=== PATIENT | male | born 1965 | race Caucasian/White ===

== ENCOUNTER 2021-01-06 20:06 | Emergency (ER) | payer OTHER, SELFPAY ==
[2021-01-06 20:07] VITALS: BP 139/87; PULSE 98; RESP 18; TEMP 37; O2SAT 95; BMI 41.8
--- NOTE | 2021-01-06 21:05 | CT_ITS ---
EXAMINATION : Head CT w/out contrast HISTORY : Trauma COMPARISON : None. TECHNIQUE : Multiple contiguous axial images were obtained from the skull base to the vertex without intravenous contrast. A radiation dose optimization technique was used for this scan. FINDINGS : The ventricles and sulci are normal in size. There is no evidence for acute intracranial hemorrhage, mass effect, or midline shift. There is no extra-axial fluid collection. There is normal gamboa-white differentiation, without CT evidence of acute ischemia or infarct. The skull base and calvarium are unremarkable. The orbits are unremarkable. The paranasal sinuses are clear. The mastoid air cells are well-aerated. Large midline occipital parietal scalp hematoma. CT/Brain/Head without Contrast IMPRESSION: Large midline occipital parietal scalp hematoma. No fracture or intracranial hemorrhage. Electronically Signed: Sukh Hernadez MD at 21:28 EDT Tel , Service support ,
--- NOTE | 2021-01-06 21:05 | EKG12_ITS ---
Test Reason : SYNCOPY Blood Pressure : / mmHG Vent. Rate : 099 BPM Atrial Rate : 099 BPM P-R Int : 142 ms QRS Dur : 106 ms QT Int : 360 ms P-R-T Axes : 046 070 036 degrees QTc Int : 462 ms Sinus rhythm with frequent Premature ventricular complexes Otherwise normal ECG Confirmed by JOE SARABIA, SHYANNE ([id number]), city editor TAHMINA SLATER ([id number]) on 01/11/2021 10:37:47 AM Referred By: ROMI Confirmed By:SHYANNE DIAZ MD
--- NOTE | 2021-01-06 21:09 | ED.RN ---
NO OLD EKGS IN MUSE
[2021-01-06 21:18] LABS: Absolute Lymphocyte Count 3.08 X10^3/uL (0.83-4.51); Absolute Neutrophil Count 5.9 X10^3/uL (2.0-7.7); Basophil# 0.04 X10^3/uL; Basophil% 0.4 % (0-1); Eosinophil# 0.15 X10^3/uL; Eosinophils% 1.5 % (0-5); Hematocrit 46.2 % (40-54); Hemoglobin 15.2 g/dL (13.0-16.5); Lymphocyte # 3.08 X10^3/ul (4.0); Lymphocyte % 30.6 % (19-41); Mean Corp Hgb Conc 32.9 g/dL (32-36); Mean Corpuscular Hgb 31.7 pg (27.0-32.0); Mean Corpuscular Volume 96.5 fL (80-94); Mean Platelet Vol. 10.1 fl (6.2-12.0); Monocyte# 0.87 X10^3/uL; Monocyte% 8.6 % (0-10); NRBC Flagged by Analyzer 0 % (0-5); Neutrophil # 5.85 X10^3/uL (2.7-7.7); Neutrophil % 58.2 % (47-70); Platelet Count 241 K/mm3 (150-450); RBC Distribution Width CV 12.1 % (11.6-14.6); RBC Distribution Width SD 43.8 fl (35.1-43.9); Red Blood Count 4.79 M/mm3 (4.6-6.2); White Blood Count 10.1 K/mm3 (4.4-11.0)
[2021-01-06 21:33] LABS: ALB/GLOB Ratio 1.1 RATIO (0.9-2.4); AST(SGOT) 28 U/L (15-37); Alanine Aminotransfer ALT/SGPT 79 U/L (16-61); Albumin, Serum 3.8 g/dL (3.2-5.0); Alkaline Phosphatase 89 U/L (45-117); Anion Gap 6 (5-15); BUN 14 mg/dL (7-18); BUN/Creat Ratio 14.9 RATIO (10-20); Calcium,Total 8.5 mg/dL (8.5-10.1); Chloride 104 mmol/L (98-107); Creatinine, Serum 0.94 mg/dL (0.70-1.30); EST Glomerular Filtration Rate 89 mL/min (>60); Est Glom Filt Rate - Afr Amer 108 mL/min (>60); Estimated Creatinine Clearance 92.76 ml/min; Globulin 3.6 g/dL (2.2-4.2); Glucose 77 mg/dL (74-106); Potassium 3.7 mmol/L (3.5-5.1); Protein, Total 7.4 g/dL (6.4-8.2); Sodium Level 137 mmol/L (136-145)
[2021-01-06 21:37] VITALS: BP 128/91; PULSE 98; RESP 20; O2SAT 93
[2021-01-06 22:23] VITALS: BP 124/87; PULSE 88; RESP 19; O2SAT 91
--- NOTE | 2021-01-06 23:24 | ED.DCSUM_ITS ---
- ER Visit Summary Date of Service: 01/06/21 Chief Complaint: Syncope History of Present Illness: The patient is a 55 M who presents after syncopal episode that occurred today. 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 Patient states he remembers coughing then remembers waking up on the floor. Patient thinks he fell backwards and hit his head. Patient states the pain is dull and is localized to the occipital area. Patient denies any bleeding. Patient also admits to drinking 7-8 beers tonight. Patient denies any chest pain or palpitations. Patient denies any shortness of breath. Patient denies any nausea or vomiting. Physical Examination: Vital signs are stable. Patient is afebrile. Patient is in no acute distress. Oral mucosa is pink and moist. Neck is supple. Trachea is midline. There is no JVD noted. Heart was regular rate and rhythm. Lungs are clear and equal bilaterally. Abdomen is soft. Bowel sounds are normal. There is no tenderness. There is no rebound or guarding noted. Skin is warm dry. Cranial nerves II through XII are intact. There are no focal motor or sensory deficits noted. Extremities are intact. There is no calf tenderness or edema. There is tenderness and edema over the occipital scalp. There is no laceration noted. There is a superficial abrasion. There is no bleeding. Test Results: T scan of the brain was obtained. There is a scalp hematoma. There is no intracranial hemorrhage noted. This was interpreted by the radiologist and reviewed by myself. EKG was obtained. On my interpretation, it showed a normal sinus rhythm with occasional PVC with a rate of 99. TX interval, QRS interval, and QTc intervals were all normal. [place] was normal. There are no acute ST or T wave changes. CBC and comprehensive metabolic profile within normal limits. Troponin was normal. Emergency Department Course and Treatment: Patient is resting comfortably on reevaluation. Patient was advised that this is most likely a syncopal episode from his coughing. Patient was instructed to follow-up with his primary care physician in 5 to 7 days. Patient understood and was agreeable with the plan. All questions were answered. Disposition: Discharge home Impression: Tussive syncope This note was generated with [employer] dictation software. It may contain incorrect words, spelling, and punctuation that were not noted in review of the chart prior to signing ED Disposition - Plan for ED Patient: Disposition: Home or Assisted Living Diagnosis: Tussive syncope Instructions: ED Fainting, Uncertain Cause Referrals: José Luis Cornelius MD [STAFF PHYSICIAN] - 5-7 Days
== END 2021-01-06 23:33 | disposition home or self-care (01) ==
PROVIDERS: Emergency Provider Emergency Medicine
DX: R05 Cough (principal); S00.03XA Contusion of scalp, initial encounter; W18.00XA Striking against unspecified object with subsequent fall, initial encounter; Y93.9 Activity, unspecified; Y92.9 Unspecified place or not applicable; Y99.9 Unspecified external cause status; I49.3 Ventricular premature depolarization; Z72.0 Tobacco use
CPT/HCPCS: 70450; 80053; 84484; 85025; 93005; 99285

== ENCOUNTER → 2025-02-16 | Outpatient (CLI) | payer OTHER, SELFPAY ==
[2025-02-16 18:05] LABS: Absolute Lymphocyte Count 2.38 X10^3/uL (0.83-4.51); Basophil# 0.05 X10^3/uL; Basophil% 0.5 % (0-1); Eosinophil# 0.09 X10^3/uL; Hematocrit 50.5 % (40-54); Hemoglobin 16.6 g/dL (13.0-16.5); Lymphocyte # 2.38 X10^3/ul (0.83-4.51); Lymphocyte % 25.6 % (19-41); Mean Corp Hgb Conc 32.9 g/dL (32-36); Mean Corpuscular Hgb 31.5 pg (27.0-32.0); Mean Corpuscular Volume 95.8 fL (80-94); Mean Platelet Vol. 10.6 fl (6.2-12.0); Monocyte# 0.74 X10^3/uL; NRBC Flagged by Analyzer 0 % (0-5); Neutrophil # 5.99 X10^3/uL (2.7-7.7); Neutrophil % 64.4 % (47-70); Platelet Count 205 K/mm3 (150-450); RBC Distribution Width CV 13.4 % (11.6-14.6); RBC Distribution Width SD 47.7 fl (35.1-43.9); Red Blood Count 5.27 M/mm3 (4.6-6.2); White Blood Count 9.3 K/mm3 (4.4-11.0)
[2025-02-16 18:12] LABS: Hemoglobin A1c 5.9 % (<=5.6)
[2025-02-16 18:22] LABS: ALB/GLOB Ratio 1.4 RATIO (0.9-2.4); AST(SGOT) 25 U/L (<=37); Alanine Aminotransfer ALT/SGPT 28 U/L (<=46); Albumin, Serum 4.2 g/dL (3.5-5.0); Alkaline Phosphatase 99 U/L (40-129); Anion Gap 11 (5-15); BUN 14 mg/dL (4-19); Calcium,Total 9.8 mg/dL (7.6-11.0); Carbon Dioxide 24.4 mmol/L (21.0-32.0); Chloride 105 mmol/L (98-108); Cholesterol 193 mg/dL (<=200); Creatinine, Serum 0.88 mg/dL (0.70-1.20); EST Glomerular Filtration Rate 100 (>60); Glucose 85 mg/dL (70-99); High Density Lipoprotein 32 mg/dL; Low Density Lipoprotein Calc. 135 mg/dL; Magnesium 2.2 mg/dL (1.5-2.2); Potassium 4.4 mmol/L (3.3-5.1); Pro- Brain NATRIURETIC PEPTIDE 769 pg/mL (<=900); Protein, Total 7.2 g/dL (5.9-8.4); Sodium Level 141 mmol/L (133-145); Total Bilirubin 0.68 mg/dL (0.00-1.30); Triglycerides 129 mg/dL; Very Low Density Lipoprotein 26 mg/dL (5-40); cholesterol:hdl ratio screen 5.99
== END | disposition home or self-care (01) ==
LOC: MTLAB 16:49
PROVIDERS: PCP Family Medicine; Referring Provider Family Medicine; Visit Provider Family Medicine
DX: I48.92 Unspecified atrial flutter (principal); I10 Essential (primary) hypertension; G62.9 Polyneuropathy, unspecified; Z12.5 Encounter for screening for malignant neoplasm of prostate
CPT/HCPCS: 36415; 80053; 80061; 83036; 83735; 83880; 84153; 84443; 85025; G0103

== ENCOUNTER → 2025-04-17 | Outpatient (CLI) | payer OTHER, SELFPAY ==
--- NOTE | 2025-04-17 09:52 | ECHOCS_ITS ---
Reason For Study Reason For Study: ATRIAL FLUTTER Procedure This was a 2D Doppler, Color Flow transthoracic echocardiogram. Contrast injection was performed. The study was technically difficult. Exam performed in department. Left Ventricle Mildly dilated left ventricle. Moderate concentric left ventricular hypertrophy. The left ventricular ejection fraction is 35 %. Stage 2 diastolic dysfunction. Right Ventricle Normal RV size. Normal systolic function. Atria The left atrium is moderately enlarged. The right atrium is mildly enlarged. Mitral Valve Normal mitral valve. Tricuspid Valve Normal tricuspid valve. Aortic Valve The aortic valve is not well visualized. Pulmonic Valve Normal pulmonic valve. Great Vessels Normal aortic root. The pulmonary artery is normal size. Inferior vena cava collapse with respiration. Pericardium/Pleural No pericardial effusion. Medication Diluted definity 2ml given slow IV push to enhance endocardial definition. MMode/2D Measurements & Calculations LVIDd: 5.8 cm IVSd: 1.5 cm Ao root diam: 3.6 cm LVIDs: 4.7 cm LVPWd: 1.4 cm RVDd: 3.7 cm FS: 18.9 % LAV(MOD-bp): 115.9 ml LVAd ap4: 39.8 cm2 LVAd ap2: 37.8 cm2 LAV(MOD-bp) Indexed: 46.3 ml/m2 LVLd ap4: 9.6 cm LVLd ap2: 9.5 cm LAV(MOD-sp2): 101.3 ml EDV(MOD-sp4): 136.1 ml EDV(MOD-sp2): 124.7 ml LAV(MOD-sp4): 117.9 ml EDV(sp4-el): 140.5 ml EDV(sp2-el): 127.8 ml LVAs ap4: 31.2 cm2 LVAs ap2: 28.5 cm2 LVLs ap4: 8.8 cm LVLs ap2: 8.1 cm ESV(MOD-sp4): 90.4 ml ESV(MOD-sp2): 83.7 ml ESV(sp4-el): 93.8 ml ESV(sp2-el): 85.0 ml EF(MOD-sp4): 33.6 % EF(MOD-sp2): 32.9 % EF(sp4-el): 33.2 % SV(MOD-sp4): 45.8 ml SV(MOD-sp2): 41.1 ml SV(sp4-el): 46.7 ml SI(MOD-sp4): 18.3 ml/m2 SI(MOD-sp2): 16.4 ml/m2 LA A4 area: 31.2 cm2 LA dimension(2D): 5.7 cm RA A4 area: 23.2 cm2 TAPSE: 1.5 cm Time Measurements MV dec time: 0.13 sec Doppler Measurements & Calculations MV E max chente: 82.8 cm/sec MV V2 max: 116.5 cm/sec MV P1/2t max chente: 117.8 cm/sec MV A max chente: 43.2 cm/sec MV max P.4 mmHg MV P1/2t: 50.2 msec MV E/A: 1.9 MV V2 mean: 58.0 cm/sec MV dec slope: 687.5 cm/sec2 MV mean P.7 mmHg MVA(P1/2t): 4.4 cm2 MV V2 VTI: 19.5 cm Ao V2 max: 142.3 cm/sec LV V1 max: 78.0 cm/sec MR max chente: 398.4 cm/sec Ao max P.1 mmHg LV V1 max P.4 mmHg MR max P.5 mmHg Ao V2 mean: 106.0 cm/sec LV V1 mean P.3 mmHg MR mean chetne: 295.9 cm/sec Ao mean P.8 mmHg LV V1 mean: 54.3 cm/sec MR mean P.0 mmHg Ao V2 VTI: 24.4 cm LV V1 VTI: 13.7 cm MR VTI: 80.8 cm AV (velocity ratio): 0.56 PA V2 max: 63.8 cm/sec PA V2 mean: 41.1 cm/sec PA V2 VTI: 10.0 cm ECHO/Echo Complete W/ Contrast Interpretation Summary Mildly dilated left ventricle. Moderate concentric left ventricular hypertrophy. The left ventricular ejection fraction is 35 %. Stage 2 diastolic dysfunction. Ordering Physician: Jakob Morrissey Referring Physician: Jakob Morrissey Performed By: Ramona Wise, SILVIANO, RVT
--- OUTSIDE RECORDS SUMMARY | 2025-04-17 09:56 | XMS RPT_ITS | CCD ---
Author Organization [facility] Care Team Providers Care Housekeeper Home Name Role Phone Dr. Hernandez Dupree DO Primary Care Provider [phone] Dr. Hernandez Dupree DO Attending Provider Dr. Hernandez Dupree DO Referring Provider Yuni SARABIA, Dr. Robert Attending Provider [phone] Hernandez Dupree Attending Unavailable Hernandez Dupree Referring Unavailable Hernandez Dupree Primary Care Unavailable Jakob Morrissey Attending Unavailable Jakob Morrissey Referring Unavailable Hernandez Dupree Primary Care Unavailable Jakob Morrissey Attending Unavailable Jakob Morrissey Referring Unavailable Hernanedz Dupree Primary Care Unavailable Hernandez Dupree Referring Unavailable Jakob Morrissey Attending Unavailable Hernandez Dupree Primary Care Unavailable Medications Current Medications Medication Drug Class(es) Dates Sig (Normalized) Sig (Original) ascorbic acid 1000 mg oral tablet (1 source) Vitamin C Start: 03-22-2025 take 1 tablet by mouth once daily Ascorbic Acid (Vitamin C) 1,000 mg tablet Active 1000 mg PO daily March 22, 2025 12:00am cholecalciferol 0.05 mg oral capsule (1 source) Vitamin D Start: 03-22-2025 take 1 capsule by mouth once daily Cholecalciferol (Vitamin D3) 50 mcg (2,000 unit) capsule Active 50 ug PO daily March 22, 2025 12:00am furosemide 40 mg oral tablet (2 sources) Loop Diuretic Start: 03-22-2025 End: 03-22-2025 take 2 tablets by mouth once daily in the morning Furosemide (Lasix) 40 mg tablet Active 80 mg PO EVERY MORNING March 22, 2025 10:12am Dgekifvkujf-C6-Gbckie karla Serr (Glucosamine Daily Complex) 1,500-400-100 mg-unit-mg tablet (1 source) Start: 03-22-2025 take 1 tablet by mouth once daily at mealtime Hcypulipebe-X7-Defro llia Serr (Glucosamine Daily Complex) 1,500-400-100 mg-unit-mg tablet Active 3 {tbl} PO daily March 22, 2025 12:00am give after food/meal 24 hr metoprolol succinate 50 mg extended release oral tablet (2 sources) beta-Adrenergic Niko Start: 04-07-2025 take 1 tablet by mouth every twenty-four hours at bedtime Metoprolol Succinate 50 mg tablet extended release 24 hr Active 50 mg PO AT BEDTIME 60 3 April 07, 2025 12:00am Start: 03-22-2025 take 1 tablet by liliana th once daily Metoprolol Succinate 100 mg tablet extended release 24 hr Active 100 mg PO daily March 22, 2025 12:00am Multivitamin tablet (1 source) Start: 03-22-2025 Multivitamin t ablet Active 1 {tbl} PO daily March 22, 2025 12:00am rivaroxaban 20 mg oral tablet (1 source) Factor Xa Inhibitor Start: 03-22-2025 take 1 tablet by mouth once daily at dinner Rivaroxaban (Xarelto) 20 mg tablet Active 20 mg PO daily March 22, 2025 12:00am must administer with evening meal Tirzepatide (Weight Loss) (1 source) Start: 03-22-2025 Tirzepatide (W eight Loss) (Zepbound) 2.5 mg/0.5 mL pen injector Active 2.5 mg SC EVERY WEEK March 22, 2025 12:00am for 4 weeks tumeric 500mg (1 source) Start: 03-22-2025 tumeric 500mg Active PO March 22, 2025 12:00am Completed/Discontinued Medications Medication Drug Class(es) Dates Sig (Normalized) Sig (Original) Testosterone Health (1 source) Start: 03-22-2025 End: 04-07-2025 Testosterone Health Discontinued PO DAILY March 22, 2025 12:00am April 07, 2025 1:13pm Problems Problem Classification Problem Date Documented Date Episodic/Chronic Cardiac dysrhythmias (6 sources) Atrial fibrillation; Translations: [Unspecified atrial fibrillation] Onset: 04-07-2025 03-22-2025 Chronic Chronic obstructive pulmonary disease and bronchiectasis (1 source) Chronic obstructive lung disease; Translations: [Chronic obstructive pulmonary disease, unspecified] 03-22-2025 Chronic Essential hypertension (2 sources) Essential hypertension; Translations: [Essential (primary) hypertension] Onset: 04-07-2025 03-22-2025 Chronic Other diseases of veins and lymphatics (1 source) Vascular insufficiency; Translations: [Venous insufficiency (chronic) (peripheral)] 03-22-2025 Episodic Other nutritional; endocrine; and metabolic disorders (1 source) Obesity; Translations: [Obesity, unspecified] 03-22-2025 Chronic Syncope (3 sources) Syncope; Translations: [Syncope and collapse] Onset: 04-07-2025 03-22-2025 Episodic Varicose veins of lower extremity (1 source) Varicose veins of lower extremity; Translations: [Varicose veins of bilateral lower extremities with other complications] 03-22-2025 Episodic Results Test Name Value Interpretation Reference Range Facility Cardiology Visit Reporton Cardiology Visit Report [facility] [address] [place] [address] OFFICE VISIT Date of Service: 04/07/25 MR#: [id number] Acct: [id number] Name: JEMAL HERNANDEZ Jr. Rep #: [id number] : 1965 Provider: Dr. Jakob Morrissey MD Age/Sex: 59/M Location: [facility] [place] Status: Signed HPI HPI History of Present Illness Details: Pleasant 59-year-old man with no previous cardiac history who presents for an initial evaluation. He was seen in his primary physician's office and was noted to have swelling in his lower extremities after he had been noted on an EKG to be tachycardic with atrial flutter in January with a rate of 144 bpm. He was put on metoprolol and the dose increased and then also Xarelto. He apparently has a chads Vascor of 1. He was also recently started on tirzepatide for weight loss. He denies any shortness of breath no paroxysmal nocturnal dyspnea no pedal edema no neck arm or jaw discomfort suggest angina. He has been compliant with his medications except for 1 dose. His physical exam today is unremarkable his electrocardiogram demonstrates atrial flutter with a variable block and a heart rate of 123 bpm. 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 Accompanied by: Significant Other Is patient in pain?: No Allergies No Known Allergies Allergy (Verified 04/07/25 13:13) Medications ???Medication ???Instructions ???Recorded ???Confirmed ???Type ascorbic acid (vitamin C) 1,000 mg 1,000 mg PO QDAY 03/22/25 History tablet cholecalciferol (vitamin D3) 50 50 mcg PO QDAY 03/22/25 04/07/25 H istory mcg (2,000 unit) capsule furosemide 40 mg tablet (Lasix) 80 mg PO QAM 03/22/25 04/07/25 His tory glucosamine BRb-G7-Lhlnezasy 3 tab PO QDAY 03/22/25 04/07/25 Hi story curtis 1,500 mg-400 unit-100 mg tablet (Glucosamine Daily Complex) metoprolol succinate 100 mg 100 mg PO QDAY 03/22/25 04/07/25 H istory tablet,extended release 24 hr multivitamin 1 tab PO QDAY 03/22/25 04/07/25 Hi story rivaroxaban 20 mg tablet (Xarelto) 20 mg PO QDAY 03/22/25 04/07/25 History tirzepatide (weight loss) 2.5 2.5 mg subcut QWEEK 03/22/2504/07 History mg/0.5 mL subcutaneous pen injector (Zepbound) tumeric 500mg PO 03/22/25 History metoprolol succinate 50 mg 50 mg PO QHS #60 tabs 04/07/2506/24 Rx tablet,extended release 24 hr Have you fallen in the past year?: No PFSH Medical History Atrial fibrillation Atrial flutter COPD (chronic obstructive pulmonary disease) Essential (primary) hypertension Obesity Syncope Varicose veins of both lower extremities with complications Venous insufficiency Surgical History Hx of appendectomy Family History Other Cancer Heart disease Hypertension Myocardial infarction Social History Smoking Status: Former smoker alcohol intake: current ROS Const Const: Negative for fatigue, weakness, headache(s), daytime sleepiness or difficulty sleeping ENT ENT: Negative for headache(s), dizziness or Nosebleed/epistaxis Cardio Chest Pain: No Palpitations: No Edema: None Resp Respiratory: Positive for SOB with activity; Negative for SOB at rest, SOB orthopnea SOB lying down or Cough GI GI: Negative nausea, vomiting or heartburn Neuro Neuro: Negative for dizziness, lightheadedness, near syncope, headache(s) or weakness Endo Endo: Negative for fatigue Supplemental Info Supplemental Information Labs: HDL Cholesterol 32 mg/dL (40-) L Cholesterol 193 mg/dL (<=200) Triglycerides 129 mg/dL (-199) Diagnostics: Electrocardiogram Pulmonary: No Data to Display Past Visits: Cardiology Visit 04/07/25 Assessment and Plan Assessment and Plan (1) Atrial flutter: Status: Acute Plan: He does have atrial flutter with a variable block. My recommendation at this time will be to increase his beta-niko to metoprolol 100 mg in the morning and 50 mg in the evening of the long- acting, to continue the Xarelto and for us to consider an interval DC cardioversion. An echocardiogram should be performed in the interim to assess his ventricular function and depending on the findings further recommendations will be made. It appears he does have a snoring history and we may want to consider sleep apnea evaluation (more content not included)... Normal [facility] Absolute lymphocyte countOrd ered By: Hernandez Dupree on 02-16-2025 Lymphocytes Auto (Unsp spec) [#/Vol] 2.38 10*3/uL 0.83-4.51 [facility] Absolute neutrophil countOrd ered By: Hernandez Dupree on 02-16-2025 Neutrophils (Bld) [#/Vol] 6.0 10*3/uL 2.0-7.7 [facility] Anion gap in Serum or Plasma Ordered By: Hernandez Dupree on 02-16-2025 Anion gap [Moles/Vol] 11 mmol/L 02-11 [facility] Automated lymphocyte count a s percentage of total leukocytesOrdered By: Hernandez Dupree on 02-16-2025 Lymphocytes/100 WBC Auto (Unsp spec) 25.6 % [facility] BUN/creatinine ratioOrdered By: Hernandez Dupree on 02-16-2025 Urea nitrogen/Creatinine [Mass ratio] 16.0 mg/mg 07-19 [facility] Basophil percentageOrdered B y: Hernandez Dupree on 02-16-2025 Basophils/100 WBC (Bld) 0.5 % 0-1 [facility] Bilirubin, totalOrdered By: Hernandez Dupree on 02-16-2025 Bilirubin [Mass/Vol] 0.68 mg/dL 0.00-1.30 [facility] CBC W/Diff, Automatedon 01-29 Absolute Lymph 2.38 X10 3/uL Normal 0.83-4.51 [facility] Comment on above: Performed By: #### L 501.5200, L501.9910, L100.0100, L503.7505, L500.4100, L500.4050, L501.9985, L501.9520 #### [facility] [address] [place], [address] Absolute Neut 6.0 X10 3/uL Normal 2.0-7.7 [facility] Comment on above: Performed By: #### L 501.5200, L501.9910, L100.0100, L503.7505, L500.4100, L500.4050, L501.9985, L501.9520 #### [facility] [address] [place], [address] Basophils/100 WBC (Bld) 0.5 % Normal 0-1 [facility] Comment on above: Performed By: #### L 501.5200, L501.9910, L100.0100, L503.7505, L500.4100, L500.4050, L501.9985, L501.9520 #### [facility] [address] [place], [address] Eosinophils/100 WBC (Bld) 1.0 % Normal 0-5 [facility] Comment on above: Performed By: #### L 501.5200, L501.9910, L100.0100, L503.7505, L500.4100, L500.4050, L501.9985, L501.9520 #### [facility] [address] [place], [address] Erythrocyte distribution width (RBC) [Ratio] 13.4 % Normal 11.6-14.6 [facility] Comment on above: Performed By: #### L 501.5200, L501.9910, L100.0100, L503.7505, L500.4100, L500.4050, L501.9985, L501.9520 #### [facility] [address] [place], [address] Hematocrit (Bld) [Volume fraction] 50.5 % Normal 40-54 [facility] Comment on above: Performed By: #### L 501.5200, L501.9910, L100.0100, L503.7505, L500.4100, L500.4050, L501.9985, L501.9520 #### [facility] [address] [place], [address] Hemoglobin (Bld) [Mass/Vol] 16.6 g/dL High 13.0-16.5 [facility] Comment on above: Performed By: #### L 501.5200, L501.9910, L100.0100, L503.7505, L500.4100, L500.4050, L501.9985, L501.9520 #### [facility] [address] [place], [address] IG% 0.500 Normal 0.0-0.9 [facility] Comment on above: Result Comment: IG% - Immature Granulocytes (promyelocytes, myelocytes and metamyelocytes) > 1% indicates that a LEFT SHIFT is Present. Performed By: #### L 501.5200, L501.9910, L100.0100, L503.7505, L500.4100, L500.4050, L501.9985, L501.9520 #### [facility] [address] [place], [address] Lymphocytes/100 WBC (Bld) 25.6 % Normal 19-41 [facility] Comment on above: Performed By: #### L 501.5200, L501.9910, L100.0100, L503.7505, L500.4100, L500.4050, L501.9985, L501.9520 #### [facility] [address] [place], [address] MCH (RBC) [Entitic mass] 31.5 pg Normal 27.0-32.0 [facility] Comment on above: Performed By: #### L 501.5200, L501.9910, L100.0100, L503.7505, L500.4100, L500.4050, L501.9985, L501.9520 #### [facility] [address] [place], [address] MCHC (RBC) [Mass/Vol] 32.9 g/dL Normal 32-36 [facility] Comment on above: Performed By: #### L 501.5200, L501.9910, L100.0100, L503.7505, L500.4100, L500.4050, L501.9985, L501.9520 #### [facility] [address] [place], [address] MCV (RBC) [Entitic vol] 95.8 fL High 80-94 [facility] Comment on above: Performed By: #### L 501.5200, L501.9910, L100.0100, L503.7505, L500.4100, L500.4050, L501.9985, L501.9520 #### [facility] [address] [place], [address] Monocytes/100 WBC (Bld) 8.0 % Normal 0-10 [facility] Comment on above: Performed By: #### L 501.5200, L501.9910, L100.0100, L503.7505, L500.4100, L500.4050, L501.9985, L501.9520 #### [facility] [address] [place], [address] Neutrophils/100 WBC (Bld) 64.4 % Normal 47-70 [facility] Comment on above: Performed By: #### L 501.5200, L501.9910, L100.0100, L503.7505, L500.4100, L500.4050, L501.9985, L501.9520 #### [facility] [address] [place], [address] Nucleated RBC (Bld) [#/Vol] 0 10*3/uL Normal 0-5 [facility] Comment on above: Performed By: #### L 501.5200, L501.9910, L100.0100, L503.7505, L500.4100, L500.4050, L501.9985, L501.9520 #### [facility] [address] [place], [address] Platelet mean volume (Bld) [Entitic vol] 10.6 fL Normal 6.2-12.0 [facility] Comment on above: Performed By: #### L 501.5200, L501.9910, L100.0100, L503.7505, L500.4100, L500.4050, L501.9985, L501.9520 #### [facility] [address] [place], [address] Platelets (Bld) [#/Vol] 205 10*3/uL Normal 150-450 [facility] Comment on above: Performed By: #### L 501.5200, L501.9910, L100.0100, L503.7505, L500.4100, L500.4050, L501.9985, L501.9520 #### [facility] [address] [place], [address] RBC (Bld) [#/Vol] 5.27 10*6/uL Normal 4.6-6.2 [facility] Comment on above: Performed By: #### L 501.5200, L501.9910, L100.0100, L503.7505, L500.4100, L500.4050, L501.9985, L501.9520 #### [facility] [address] [place], [address] RDW SD 47.7 fl High 35.1-43.9 [facility] Comment on above: Performed By: #### L 501.5200, L501.9910, L100.0100, L503.7505, L500.4100, L500.4050, L501.9985, L501.9520 #### [facility] [address] [place], [address] WBC (Bld) [#/Vol] 9.3 10*3/uL Normal 4.4-11.0 [facility] Comment on above: Performed By: #### L 501.5200, L501.9910, L100.0100, L503.7505, L500.4100, L500.4050, L501.9985, L501.9520 #### [facility] [address] [place], [address] Calculated very low density lipoprotein (VLDL) cholesterol measurementOrdered By: Hernandez Dupree on 02-16-2025 Calculated very low density lipoprotein (VLDL) cholesterol measurement 26 mg/dL 5-40 [facility] Carbon dioxide, total [Moles /volume] in Central venous bloodOrdered By: Hernandez Dupree on 02-16-2025 CO2 [Moles/Vol] 24.4 mmol/L 21.0-32.0 [facility] Chloride assayOrdered By: Cassius Dupree on 02-16-2025 Chloride [Moles/Vol] 105 mmol/L 98-108 [facility] Comprehensive Metabolic Prof ilon 02-16-2025 Albumin [Mass/Vol] 4.2 g/dL Normal 3.5-5.0 [facility] Comment on above: Performed By: #### L 501.5200, L501.9910, L100.0100, L503.7505, L500.4100, L500.4050, L501.9985, L501.9520 #### [facility] [address] [place], [address] Albumin/Globulin [Mass ratio] 1.4 {ratio} Normal 0.9-2.4 [facility] Comment on above: Performed By: #### L 501.5200, L501.9910, L100.0100, L503.7505, L500.4100, L500.4050, L501.9985, L501.9520 #### [facility] [address] [place], [address] ALK PHOS 99 U/L Normal 40-129 [facility] Comment on above: Performed By: #### L 501.5200, L501.9910, L100.0100, L503.7505, L500.4100, L500.4050, L501.9985, L501.9520 #### [facility] [address] [place], [address] ALT [Catalytic activity/Vol] 28 U/L Normal <=46 [facility] Comment on above: Performed By: #### L 501.5200, L501.9910, L100.0100, L503.7505, L500.4100, L500.4050, L501.9985, L501.9520 #### [facility] [address] [place], [address] AST [Catalytic activity/Vol] 25 U/L Normal <=37 [facility] Comment on above: Performed By: #### L 501.5200, L501.9910, L100.0100, L503.7505, L500.4100, L500.4050, L501.9985, L501.9520 #### [facility] [address] [place], [address] Bilirubin [Mass/Vol] 0.68 mg/dL Normal 0.00-1.30 [facility] Comment on above: Performed By: #### L 501.5200, L501.9910, L100.0100, L503.7505, L500.4100, L500.4050, L501.9985, L501.9520 #### [facility] [address] [place], [place], [id number] (669) BUN/CRE 16.0 RATIO Normal 10-20 [facility] Comment on above: Performed By: #### L 501.5200, L501.9910, L100.0100, L503.7505, L500.4100, L500.4050, L501.9985, L501.9520 #### [facility] [address] [place], [address] Calcium [Mass/Vol] 9.8 mg/dL Normal 7.6-11.0 [facility] Comment on above: Performed By: #### L 501.5200, L501.9910, L100.0100, L503.7505, L500.4100, L500.4050, L501.9985, L501.9520 #### [facility] [address] [place], [address] Chloride [Moles/Vol] 105 mmol/L Normal 98-108 [facility] Comment on above: Performed By: #### L 501.5200, L501.9910, L100.0100, L503.7505, L500.4100, L500.4050, L501.9985, L501.9520 #### [facility] [address] [place], [address] CO2 [Moles/Vol] 24.4 mmol/L Normal 21.0-32.0 [facility] Comment on above: Performed By: #### L 501.5200, L501.9910, L100.0100, L503.7505, L500.4100, L500.4050, L501.9985, L501.9520 #### [facility] [address] [place], [address] Creatinine [Mass/Vol] 0.88 mg/dL Normal 0.70-1.20 [facility] Comment on above: Performed By: #### L 501.5200, L501.9910, L100.0100, L503.7505, L500.4100, L500.4050, L501.9985, L501.9520 #### [facility] [address] [place], [place], [id number] (481) GAP 11 Normal 5-15 [facility] Comment on above: Performed By: #### L 501.5200, L501.9910, L100.0100, L503.7505, L500.4100, L500.4050, L501.9985, L501.9520 #### [facility] [address] [place], [place], [id number] (441 GFR/1.73 sq M.predicted among non-blacks MDRD (S/P/Bld) [Vol rate/Area] 100 mL/min/{1.73_m2} Normal >60 [facility] Comment on above: Result Comment: mL/m in/1.73m2 CKD-EPI Creatinine Equation (2020) Performed By: #### L 501.5200, L501.9910, L100.0100, L503.7505, L500.4100, L500.4050, L501.9985, L501.9520 #### [facility] [address] [place], [address] Globulin (S) [Mass/Vol] 3.0 g/dL Normal 2.2-4.2 [facility] Comment on above: Performed By: #### L 501.5200, L501.9910, L100.0100, L503.7505, L500.4100, L500.4050, L501.9985, L501.9520 #### [facility] [address] [place], [address] Glucose [Mass/Vol] 85 mg/dL Normal 70-99 [facility] Comment on above: Performed By: #### L 501.5200, L501.9910, L100.0100, L503.7505, L500.4100, L500.4050, L501.9985, L501.9520 #### [facility] [address] [place], [address] Potassium [Moles/Vol] 4.4 mmol/L Normal 3.3-5.1 [facility] Comment on above: Performed By: #### L 501.5200, L501.9910, L100.0100, L503.7505, L500.4100, L500.4050, L501.9985, L501.9520 #### [facility] [address] [place], [address] Sodium [Moles/Vol] 141 mmol/L Normal 133-145 [facility] Comment on above: Performed By: #### L 501.5200, L501.9910, L100.0100, L503.7505, L500.4100, L500.4050, L501.9985, L501.9520 #### [facility] [address] [place], [place], [id number] T PROT 7.2 g/dL Normal 5.9-8.4 [facility] Comment on above: Performed By: #### L 501.5200, L501.9910, L100.0100, L503.7505, L500.4100, L500.4050, L501.9985, L501.9520 #### [facility] [address] [place], [place], [id number] Urea nitrogen [Mass/Vol] 14 mg/dL Normal 4-19 [facility] Comment on above: Performed By: #### L 501.5200, L501.9910, L100.0100, L503.7505, L500.4100, L500.4050, L501.9985, L501.9520 #### [facility] [address] [place], [place], [id number] Eosinophil percentageOrdered By: Hernandez Dupree on 02-16-2025 Eosinophils/100 WBC (Bld) 1.0 % 0-5 [facility] Erythrocyte distribution wid th ratioOrdered By: Hernandez Dupree on 02-16-2025 Erythrocyte distribution width (RBC) [Ratio] 13.4 % 11.6-14.6 [facility] Erythrocyte distribution wid th standard deviationOrdered By: Hernandez Dupree on 02-16-2025 Erythrocyte distribution width (RBC) [Ratio] 47.7 fl High 35.1-43.9 [facility] Glomerular filtration rate ( GFR) estimation/1.73 sq m using serum, plasma, or whole bOrdered By: Hernandez Dupree on 02-16-2025 GFR/1.73 sq M.predicted among non-blacks MDRD (S/P/Bld) [Vol rate/Area] 100 mL/min/{1.73_m2} >60 [facility] Comment on above: mL/min/1.73m2 CKD-EP I Creatinine Equation (2020) Hematocrit Auto (Bld) [Volum e fraction]Ordered By: Hernandez Dupree on 02-16-2025 Hematocrit (Bld) [Volume fraction] 50.5 % 40-54 [facility] Hemoglobin A1con 02-16-2025 HbA1c (Bld) [Mass fraction] 5.9 % High <=5.6 [facility] Comment on above: Result Comment: Norm al < 5.7 % Prediabetic 5.7 - 6.4 % Diabetic >or= 6.5 % Please note range changes. Performed By: #### L 501.5200, L501.9910, L100.0100, L503.7505, L500.4100, L500.4050, L501.9985, L501.9520 #### [facility] [address] [place], [address] Hemoglobin A1c percentageOrd ered By: Hernandez Dupree on 02-16-2025 HbA1c (Bld) [Mass fraction] 5.9 % High <5.7 [facility] Comment on above: Normal < 5.7 % Predi abetic 5.7 - 6.4 % Diabetic >or= 6.5 % Please note range changes. Hemoglobin measurementOrdere d By: Hernandez Dupree on 02-16-2025 Hemoglobin (Bld) [Mass/Vol] 16.6 g/dL High 13.0-16.5 [facility] Immature granulocytes/100 WB C Auto (Bld)Ordered By: Hernandez Dupree on 02-16-2025 Immature granulocytes/100 WBC (Bld) 0.500 % 0.0-0.9 [facility] Comment on above: IG% - Immature Granu locytes (promyelocytes, myelocytes and metamyelocytes) > 1% indicates that a LEFT SHIFT is Present. L503.7505on 02-16-2025 Natriuretic peptide B (Bld) [Mass/Vol] 769 pg/mL Normal <=900 [facility] Comment on above: Result Comment: Hear t Failure Unlikely: < 300 pg/mL Heart Failure Likely < 50 Years: > 450 pg/mL 50-75 Years: > 900 pg/mL >75 Years: > 1800 pg/mL Performed By: #### L 501.5200, L501.9910, L100.0100, L503.7505, L500.4100, L500.4050, L501.9985, L501.9520 #### [facility] [address] [place], [place], [phone] LDL calc ser/plasOrdered By: Hernandez Dupree on 02-16-2025 Cholesterol in LDL [Mass/Vol] 135 mg/dL [facility] Comment on above: Hjynfsvbsu=380-661 m g/dL & Higher Ukea=049 mg/dL or greater Laboratory - Chemistry and C hemistry - challengeOrdered By: Hernandez Dupree on 02-16-2025 AST [Catalytic activity/Vol] 25 U/L <38 [facility] Lipid Profileon 02-16-2025 CHOL:HDL 5.99 Normal [facility] Comment on above: Performed By: #### L 501.5200, L501.9910, L100.0100, L503.7505, L500.4100, L500.4050, L501.9985, L501.9520 #### [facility] [address] [place], [address] [phone] Cholesterol [Mass/Vol] 193 mg/dL Normal <=200 [facility] Comment on above: Result Comment: Chol esterol level, Desirable <200 mg/dL Borderline high cholesterol 200-239 mg/dL High cholesterol >=240 mg/dL Recommendations of the NCEP Adult Treatment Panel for the following risk-cutoff thresholds for the [place] population. Performed By: #### L 501.5200, L501.9910, L100.0100, L503.7505, L500.4100, L500.4050, L501.9985, L501.9520 #### [facility] [address] [place], [place], [phone] Cholesterol in HDL [Mass/Vol] 32 mg/dL Low [facility] Comment on above: Result Comment: [place] onal Cholesterol Education Program (NCEP) guidelines: <40 mg/dL: Low HDL-cholesterol (major risk factor for CHD) >= 60 mg/dL: High HDL-cholesterol (negative risk factor for CHD) HDL-cholesterol is affected by a number of factors, e.g. smoking, exercise, hormones, sex and age. Performed By: #### L 501.5200, L501.9910, L100.0100, L503.7505, L500.4100, L500.4050, L501.9985, L501.9520 #### [facility] [address] [place], [address] Cholesterol in LDL [Mass/Vol] 135 mg/dL Normal [facility] Comment on above: Result Comment: Bord dfyniz=347-574 mg/dL Higher Nlfd=929 mg/dL or greater Performed By: #### L 501.5200, L501.9910, L100.0100, L503.7505, L500.4100, L500.4050, L501.9985, L501.9520 #### [facility] [address] [place], [address] Cholesterol in VLDL [Mass/Vol] 26 mg/dL Normal 5-40 [facility] Comment on above: Performed By: #### L 501.5200, L501.9910, L100.0100, L503.7505, L500.4100, L500.4050, L501.9985, L501.9520 #### [facility] [address] [place], [address] Triglyceride [Mass/Vol] 129 mg/dL Normal [facility] Comment on above: Result Comment: The drugs N-Acetylcysteine and Metamizole may falsely depress this assay. Normal range: <150 mg/dL Borderline High: 150-199 mg/dL High: 200-499 mg/dL Very High: >500 mg/dL Performed By: #### L 501.5200, L501.9910, L100.0100, L503.7505, L500.4100, L500.4050, L501.9985, L501.9520 #### [facility] [address] [place], [place], [phone] MCV (mean corpuscular volume ) determinationOrdered By: Hernandez Dupree on 02-16-2025 MCV (RBC) [Entitic vol] 95.8 fL High 80-94 [facility] Magnesiumon 02-16-2025 Magnesium [Mass/Vol] 2.2 mg/dL Normal 1.5-2.2 [facility] Comment on above: Performed By: #### L 501.5200, L501.9910, L100.0100, L503.7505, L500.4100, L500.4050, L501.9985, L501.9520 #### [facility] [address] [facility] [address] [place], [place], [phone] Magnesium measurement (mass/ volume)Ordered By: Hernandez Dupree on 02-16-2025 Magnesium (Unsp spec) [Mass/Vol] 2.2 mg/dL 1.5-2.2 [facility] Mean corpuscular hemoglobin (MCH) determinationOrdered By: Hernandez Dupree on 02-16-2025 MCH (RBC) [Entitic mass] 31.5 pg 27.0-32.0 [facility] Mean corpuscular hemoglobin concentration (MCHC) determinationOrdered By: Hernandez Dupree on 02-16-2025 MCHC (RBC) [Mass/Vol] 32.9 g/dL 32-36 [facility] Mean platelet volume determi nationOrdered By: Hernandez Dupree on 02-16-2025 Platelet mean volume (Bld) [Entitic vol] 10.6 fL 6.2-12.0 [facility] Monocyte percentageOrdered B y: Hernandez Dupree on 02-16-2025 Monocytes/100 WBC (Bld) 8.0 % 0-10 [facility] Natriuretic peptide.B prohor araceli N-Terminal [Mass/volume] in Serum or PlasmaOrdered By: Hernandez Dupree on 02-16-2025 Natriuretic peptide.B prohormone N-Terminal [Mass/Vol] 769 pg/mL <900 [facility] Comment on above: Heart Failure Unlike ly: < 300 pg/mLHeart Failure Likely< 50 Years: > 450 pg/mL50-75 Years: > 900 pg/mL>75 Years: > 1800 pg/mL Neutrophil percentageOrdered By: Hernandez Dupree on 02-16-2025 Neutrophils/100 WBC (Bld) 64.4 % 47-70 [facility] Nucleated red blood cell per centageOrdered By: Hernandez Dupree on 02-16-2025 Nucleated RBC/100 WBC (Bld) [Ratio] 0 % 0-5 [facility] PSA,Total - Annual Screenon 02-16-2025 PSA,TOT SCREEN 0.80 ng/mL Normal 0.02-4.00 [facility] Comment on above: Result Comment: This test was performed using the [facility] [employer] tPSA method. Measured values of a patient??sample can vary depending on the testing procedure used. PSA values determined on patient samples by different testing procedures cannot be used interchangeably. If there is a change in PSA assays while monitoring therapy, sequential testing should be performed to confirm baseline values. Performed By: #### L 501.5200, L501.9910, L100.0100, L503.7505, L500.4100, L500.4050, L501.9985, L501.9520 #### [facility] [address] [place], [address] Platelet countOrdered By: Cassius Dupree on 02-16-2025 Platelets (Bld) [#/Vol] 205 10*3/uL 150-450 [facility] Potassium measurement (mass/ volume)Ordered By: Hernandez Dupree on 02-16-2025 Potassium (Unsp spec) [Mass/Vol] 4.4 mmol/L 3.3-5.1 [facility] RBC Auto (Bld) [#/Vol]Ordere d By: Hernandez Dupree on 02-16-2025 RBC (Bld) [#/Vol] 5.27 10*6/uL 4.6-6.2 [facility] Screening total cholesterol/ high density lipoprotein (HDL) cholesterol ratioOrdered By: Hernandez Dupree on 02-16-2025 Cholesterol.total/Choles terol in HDL [Mass ratio] 5.99 {ratio} [facility] Serum creatinine measurement (mass/volume)Ordered By: Hernandez Dupree on 02-16-2025 Creatinine [Mass/Vol] 0.88 mg/dL 0.70-1.20 [facility] Serum globulin measurementOr dered By: Hernandez Dupree on 02-16-2025 Globulin (S) [Mass/Vol] 3.0 g/dL 2.2-4.2 [facility] Serum glucose measurement (m ass/volume)Ordered By: Hernandez Dupree on 02-16-2025 Glucose [Mass/Vol] 85 mg/dL 70-99 [facility] Serum or plasma alanine nelson otransferase (ALT) measurementOrdered By: Hernandez Dupree on 02-16-2025 ALT [Catalytic activity/Vol] 28 U/L <47 [facility] Serum or plasma albumin atul urement (mass/volume)Ordered By: Hernandez Dupree on 02-16-2025 Albumin [Mass/Vol] 4.2 g/dL 3.5-5.0 [facility] Serum or plasma albumin/glob ulin mass ratioOrdered By: Hernandez Dupree on 02-16-2025 Albumin/Globulin [Mass ratio] 1.4 {ratio} 0.9-2.4 [facility] Serum or plasma alkaline lópez sphatase measurementOrdered By: Hernandez Dupree on 02-16-2025 ALP [Catalytic activity/Vol] 99 U/L 40-129 [facility] Serum or plasma calcium atul urement (mass/volume)Ordered By: Hernandez Dupree on 02-16-2025 Calcium [Mass/Vol] 9.8 mg/dL 7.6-11.0 [facility] Serum or plasma cholesterol in HDL measurement (mass/volume)Ordered By: Hernandez Dupree on 02-16-2025 Cholesterol in HDL [Mass/Vol] 32 mg/dL Low >40 [facility] Comment on above: National Cholesterol Education Program (NCEP) guidelines:<40 mg/dL: Low HDL-cholesterol (major risk factor for CHD)>= 60 mg/dL: High HDL-cholesterol (negative risk factor for CHD)HDL-cholesterol is affected by a number of factors, e.g. smoking, exercise, hormones, sex and age. Serum or plasma cholesterol measurement (mass/volume)Ordered By: Hernandez Dupree on 02-16-2025 Cholesterol [Mass/Vol] 193 mg/dL <201 [facility] Comment on above: Cholesterol level, D esirable <200 mg/dLBorderline high cholesterol 200-239 mg/dLHigh cholesterol >=240 mg/dLRecommendations of the NCEP Adult Treatment Panel for the following risk-cutoff thresholds for the [place] population. Serum or plasma urea nitroge n measurement (mass/volume)Ordered By: Hernandez Dupree on 02-16-2025 Urea nitrogen [Mass/Vol] 14 mg/dL 4-19 [facility] Sodium levelOrdered By: Hernandez Dupree on 02-16-2025 Sodium [Moles/Vol] 141 mmol/L 133-145 [facility] TSH DL <= 0.005 mIU/L QnOrde red By: Hernandez Dupree on 02-16-2025 TSH Qn 1.640 uIU/mL 0.300-4.200 [facility] Thyroid Stim Hormone (TSH)on 02-16-2025 TSH 1.640 uIU/mL Normal 0.300-4.200 [facility] Comment on above: Performed By: #### L 501.5200, L501.9910, L100.0100, L503.7505, L500.4100, L500.4050, L501.9985, L501.9520 #### [facility] [address] [place], [place], [phone] Total proteinOrdered By: Helen Dupree on 02-16-2025 Protein [Mass/Vol] 7.2 g/dL 5.9-8.4 [facility] Triglycerides measurementOrd ered By: Hernandez Dupree on 02-16-2025 Triglyceride [Mass/Vol] 129 mg/dL <199 [facility] Comment on above: The drugs N-Acetylcy steine and Metamizole may falsely depress this assay. Normal range: <150 mg/dLBorderline High: 150-199 mg/dLHigh: 200-499 mg/dLVery High: >500 mg/dL White blood cell (WBC) count Ordered By: Hernandez Dupree on 02-16-2025 WBC (Bld) [#/Vol] 9.3 10*3/uL 4.4-11.0 [facility] Vital Signs Date Time Vital Sign Value Performing Clinician Charlie lassiter 04-07-2025 13:09-0400 Body height 177.[address] Hernandez Dupree DO Work Phone: [facility] 04-07-2025 13:09-0400 Body mass index (BMI) [Ratio] 44 kg/m2 Dr. Hernandez Dupree DO Work Phone: [facility] 04-07-2025 13:09-0400 Body weight 139.[address] Hernandez Dupree DO Work Phone: [facility] 04-07-2025 13:09-0400 Diastolic blood pressure 78 mm[Hg] Dr. Hernandez Dupree DO Work Phone: [facility] 04-07-2025 13:09-0400 Heart rate 122 /min Dr. Hernandez Dupree DO Work Phone: [facility] 04-07-2025 13:09-0400 Respiratory rate 16 /min Dr. Hernandez Dupree DO Work Phone: [facility] 04-07-2025 13:09-0400 Systolic blood pressure 132 mm[Hg] Dr. Hernandez Dupree DO Work Phone: [facility] Encounters Encounter Date Encounter Type Care Provider Facility Start: 05-03-2025 ambulatory Jakob Morrissey Facility:[facility] Start: 04-17-2025 ambulatory Jakob Yuni Facility:[facility] Start: 04-07-2025 End: 04-07-[address] Jakob Morrissey MD -[facility] Work Phone: Start: 04-07-2025 End: 04-07-[address] Hernandez Dupree DO Work Phone: -[facility] Start: 02-16-2025 End: 02-16-[address] Hernandez Dupree DO -[facility] Work Phone: Start: 02-16-2025 End: 02-16-2025 ambulatory Hernandez Dupree Facility:[facility] Procedures Date Procedure Procedure Detail Performing Clinician Start: 02-16-2025 Prostate specific an tigen measurement Dr. Hernandez Dupree DO Work Phone: Comment on above: This test was perfor med using the [facility] [employer] tPSA method. Measured values of a patient sample can vary depending on the testing procedure used. PSA values determined on patient samples by different testing procedures cannot be used interchangeably. If there is a change in PSA assays while monitoring therapy, sequential testing should be performed to confirm baseline values. Plan of Treatment Date Care Activity Detail Author Start: 04-07-2025 Evaluation of diagno stic study results [facility] Basic metabolic 2008 panel with ionized calcium - Serum or Plasma [facility] spital Cardioversion [facility] Heart [facility] Payers Date Payer Category Payer Unknown [id number] 2025 Self-pay 2025 Unknown [id number] Unknown [id number] [id number] [id number] Unknown [id number] 2.16.8 [id number] Unknown [id number] 2.16.8 [id number] Unknown [id number] 2.16.8 [id number] Social History Date Type Detail Facility Start: [facility] Start: 1965 Sex Assigned At Male [facility] Progress note 04-07-2025 Note Date & Type Note Facility 04-07-2025 Progress note [facility] Evaluation note Note Date & Type Note Facility Evaluation note Diagnosis Onset Date Resolution Atrial flutter acute April 07, 2025 1:07pm [facility] Work Phone: Progress note Note Date & Type Note Facility Progress note Note Date/Time April 07, 2025 1:49pm [facility] [address] [place] [address] OFFICE VISIT Date of Service: 04/07/25 MR#: [id number] Acct: [id number] Name: JEMAL HERNANDEZ Jr. Rep #: [id number] : 1965 Provider: Dr. Jerry Morrissey MD Age/Sex: 59/M Location: [facility] Status: Signed HPI HPI History of Present Illness Details: Pleasant 59-year-old man with no previous cardiac history who presents for an initial evaluation. He was seen in his primary physician's office and was notedto have swelling in his lower extremities after he had been noted on an EKG to be tachycardic with atrial flutter in January with a rate of 144 bpm. He was put onmetoprolol and the dose increased and then also Xarelto. He apparently has a chads Vascor of 1. He was also recently started on tirzepatide for weight loss. He denies any shortness of breath no paroxysmal nocturnal dyspnea no pedal edema no neck arm or jaw discomfort suggest angina. He has been compliant with his medications except for 1 dose. His physical exam today is unremarkable his electrocardiogram demonstrates atrial flutter with a variable block and a heart rate of 123 bpm. 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 Accompanied by: Significant Other Is patient in pain?: No Allergies No Known Allergies Allergy (Verified 04/07/25 13:13) Medications ?Medication ?Instructions ?Recorded ?Confirmed ?Type ascorbic acid (vitamin C) 1,000 mg 1,000 mg PO QDAY 04/07/25 History tablet cholecalciferol (vitamin D3) 50 50 mcg PO QDAY 5 04/07/25 History mcg (2,000 unit) capsule furosemide 40 mg tablet (Lasix) 80 mg PO QAM 03/22/25 04/07/25 History glucosamine WUr-W2-Fpirxehmy 3 tab PO QDAY 03/22/25 History curtis 1,500 mg-400 unit-100 mg tablet (Glucosamine Daily Complex) metoprolol succinate 100 mg 100 mg PO QDAY 03/22/25 History tablet,extended release 24 hr multivitamin 1 tab PO QDAY 03/22/2504/07 History rivaroxaban 20 mg tablet (Xarelto) 20 mg PO QDAY 03/2204/07/25 History tirzepatide (weight loss) 2.5 2.5 mg subcut QWEEK 03/0104/07/25 History mg/0.5 mL subcutaneous pen injector (Zepbound) tumeric 500mg PO 03/22/25 History metoprolol succinate 50 mg 50 mg PO QHS #60 tabs 04/0704/07/25 Rx tablet,extended release 24 hr Have you fallen in the past year?: No PFSH Medical History Atrial fibrillation Atrial flutter COPD (chronic obstructive pulmonary disease) Essential (primary) hypertension Obesity Syncope Varicose veins of both lower extremities with complications Venous insufficiency Surgical History Hx of appendectomy Family History Other Cancer Heart disease Hypertension Myocardial infarction Social History Smoking Status: Former smoker alcohol intake: current ROS Const Const: Negative for fatigue, weakness, headache(s), daytime sleepiness or difficulty sleeping ENT ENT: Negative for headache(s), dizziness or Nosebleed/epistaxis Cardio Chest Pain: No Palpitations: No Edema: None Resp Respiratory: Positive for SOB with activity; Negative for SOB at rest, SOB orthopnea\SOB lying down or Cough GI GI: Negative nausea, vomiting or heartburn Neuro Neuro: Negative for dizziness, lightheadedness, near syncope, headache(s) or weakness Endo Endo: Negative for fatigue Supplemental Info Supplemental Information Labs: HDL Cholesterol 32 mg/dL (40-) L Cholesterol 193 mg/dL (<=200) Triglycerides 129 mg/dL (-199) Diagnostics: Electrocardiogram Pulmonary: No Data to Display Past Visits: Cardiology Visit 04/07/25 Assessment and Plan Assessment and Plan (1) Atrial flutter: Status: Acute Plan: He does have atrial flutter with a variable block. My recommendation at this time will be to increase his beta-niko to metoprolol 100 mg in the morning and 50 mg in the evening of the long-acting, to continue the Xarelto and for us to consider an interval DC cardioversion. An echocardiogram should be performedin the interim to assess his ventricular function and depending on the findings further recommendations will be made. It appears he does have a snoring historyand we may want to consider sleep apnea evaluation as well at some point. I have discussed the above with him and his they understand and agree to proceed. Thank you for allowing me to participate in the care of your patient. Please don't hesitate to call if any issues arise. Orders: Orders 12 Lead EKG performed by [facility] Today I10 - Essential (primary) hypertension, I48.91 - Unspecified atrial fibrillation, I48.92 - Unspecified atrial flutter, R55 - Syncope and collapse Basic Metabolic Profile (BMP) 2 Weeks I48.92 - Unspecified atrial flutter Cardioversion Today I48.92 - Unspecified atrial flutter Echo Complete Today I48.92 - Unspecified atrial flutter Medications: New metoprolol succinate ER 50 mg PO QHS 60 tabs 3RF Plan Details Follow Up: 2 Months (sd) Coding Level of Care Code Off vis,new,level 4 Diagnoses Atrial flutter I48.92 Coding Level of Care Code Off vis,new,level 4 Diagnoses Atrial flutter I48.92 Clinical Quality Measures Falls Risk Screening/Assistive Devices Have you fallen in the past year?: No 04/07/25 1349 <Electronically signed by Jakob Graves> Date _ Jakob Bhatia Signature: Date (if applicable) CC: Dr. Hernandez Dupree DO ~ [facility] Work Phone: Reason for referral (narrative) Note Date & Type Note Facility Reason for referral (narrative) No reason for referral information available [facility] Work Phone: Chief Complaint and Reason for Visit Chief Complaint Admit Date NEW ONSET AFIB (TAY) April 07, 2025 1:07pm Reason for Visit Admit Date Atrial flutter April 07, 2025 1:07p m Family History No Family History Records Found Relationship Condition Age at Onset Recorded Date/T carina Not Specified Cardiac disease Unknown Myocardial infarction Unknown Malignant neoplasm Unknown Hypertension Unknown Summary Purpose Advance Directives No Advanced Directives Records Found Additional Source Comments Care Teams (unrecognized sec tion and content) Team Status: Active Member Role/Relationship Status Dates Dr. Hernandez Dupree DO Primary Care Provider Active Team Status: Inactive Member Role/Relationship Status Dates Dr. Hernandez Dupree DO Primary Care Provider Active Start: February 16, 2025 End: February 16, 2025 Dr. Hernandez Dupree DO Attending Provider Active Start: February 16, 2025 End: February 16, 2025 Dr. Hernandez Dupree DO Referring Provider Active Start: February 16, 2025 End: February 16, 2025 Team Status: Inactive Member Role/Relationship Status Dates Dr. Hernandez Dupree DO Primary Care Provider Active Start: April 07, 2025 End: April 07, 2025 Dr. Hernandez Dupree DO Referring Provider Active Start: April 07, 2025 End: April 07, 2025 Dr. Jakob Morrissey MD Attending Provider Active S tart: April 07, 2025 End: April 07, 2025 Goals (unrecognized section and content) Goals may be documented in a n alternate section (unrecognized sect ion and content) No Status Records Found INFORMATION SOURCE (unrecogn ized section and content) DATE CREATED AUTHOR 04/15/2025 [facility] FOR RECORDS PERTAINING TO PATIENTS WHO ARE OR HAVE BEEN ENROLLED IN A CHEMICAL DEPENDENCY/SUBSTANCEABUSE PROGRAM, SOME INFORMATION MAY BE OMITTED. This clinical summary was aggregated from multiple sources. Caution should be exercised in using it in the provision of clinical care. This summary normalizes information from multiple sources, and as a consequence, information in this document may materially change the coding, format and clinical context of patient data. In addition, data may be omitted in some cases. CLINICAL DECISIONS SHOULD BE BASED ON THE PRIMARY CLINICAL RECORDS. [facility] [employer] [facility]. provides no warranty or guarantee of the accuracy or completeness of information in this document.
== END | disposition home or self-care (01) ==
LOC: CVS 09:49
PROVIDERS: PCP Family Medicine; Referring Provider Internal Medicine Cardiovascular Disease; Visit Provider Internal Medicine Cardiovascular Disease
DX: I48.91 Unspecified atrial fibrillation (principal); I48.92 Unspecified atrial flutter
CPT/HCPCS: 93306; Q9957; A4216; C8929

== ENCOUNTER → 2025-04-26 | Outpatient (CLI) | payer OTHER, SELFPAY ==
[2025-04-26 13:31] LABS: Anion Gap 12 (5-15); BUN 15 mg/dL (4-19); BUN/Creat Ratio 14.3 RATIO (10-20); Calcium,Total 9.5 mg/dL (7.6-11.0); Carbon Dioxide 25.1 mmol/L (21.0-32.0); Chloride 103 mmol/L (98-108); Glucose 100 mg/dL (70-99); Potassium 4.6 mmol/L (3.3-5.1)
== END | disposition home or self-care (01) ==
LOC: MTLAB 10:29
PROVIDERS: PCP Family Medicine; Referring Provider Internal Medicine Cardiovascular Disease; Visit Provider Internal Medicine Cardiovascular Disease
DX: I48.92 Unspecified atrial flutter (principal)
CPT/HCPCS: 36415; 80048

== ENCOUNTER 2025-05-10 08:11 | Day surgery (SDC) | payer OTHER, SELFPAY ==
--- NOTE | 2025-05-06 11:09 | PCM.HP.BLA ---
History and Physical Date of Admission: 05/10/25 Pleasant 59-year-old man with no previous cardiac history who presents for a cardioversion. He was seen in his primary physician's office and was noted to have swelling in his lower extremities after he had been noted on an EKG to be tachycardic with atrial flutter in January with a rate of 144 bpm. He was put on metoprolol and the dose increased and then also Xarelto. He apparently has a chads Vascor of 1. He was also recently started on tirzepatide for weight loss. He denies any shortness of breath no paroxysmal nocturnal dyspnea no pedal edema no neck arm or jaw discomfort suggest angina. He has been compliant with his medications except for 1 dose. His physical exam today is unremarkable. 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 Required: No Accompanied by: Significant Other Is patient in pain?: No Allergies No Known Allergies Allergy (Verified 04/07/25 13:13) Medications: See EMR Have you fallen in the past year?: No PFSH Medical History Atrial fibrillation Atrial flutter COPD (chronic obstructive pulmonary disease) Essential (primary) hypertension Obesity Syncope Varicose veins of both lower extremities with complications Venous insufficiency Surgical History Hx of appendectomy Family History Other Cancer Heart disease Hypertension Myocardial infarction Social History Smoking Status: Former smoker alcohol intake: current ROS Const Const: Negative for fatigue, weakness, headache(s), daytime sleepiness or difficulty sleeping ENT ENT: Negative for headache(s), dizziness or Nosebleed/epistaxis Cardio Chest Pain: No Palpitations: No Edema: None Resp Respiratory: Positive for SOB with activity; Negative for SOB at rest, SOB orthopnea\SOB lying down or Cough GI GI: Negative nausea, vomiting or heartburn Neuro Neuro: Negative for dizziness, lightheadedness, near syncope, headache(s) or weakness Endo Endo: Negative for fatigue Supplemental Info Supplemental Information Echocardiogram from 04/17/2025: Interpretation Summary Mildly dilated left ventricle. Moderate concentric left ventricular hypertrophy. The left ventricular ejection fraction is 35 %. Stage 2 diastolic dysfunction. Assessment and Plan Assessment and Plan (1) Atrial flutter: Status: Acute Plan: He does have atrial flutter with a variable block. His metoprolol was increased at last office visit. He is currently on Xarelto 20 mg p.o. daily. He proceeded with an echocardiogram on 04/17/2025 that showed LV function 35%, stage II diastolic dysfunction, moderately enlarged left atrium, and mildly enlarged right atrium. He will proceed with cardioversion.
--- NOTE | 2025-05-06 17:24 | PCM.HP.BLA ---
History and Physical Date of Admission: 05/10/25 Pleasant 59-year-old man with no previous cardiac history who presents for an initial evaluation. He was seen in his primary physician's office and was noted to have swelling in his lower extremities after he had been noted on an EKG to be tachycardic with atrial flutter in January with a rate of 144 bpm. He was put on metoprolol and the dose increased and then also Xarelto. He apparently has a chads Vascor of 1. He was also recently started on tirzepatide for weight loss. He denies any shortness of breath no paroxysmal nocturnal dyspnea no pedal edema no neck arm or jaw discomfort suggest angina. He has been compliant with his medications except for 1 dose. His physical exam today is unremarkable his electrocardiogram demonstrates atrial flutter with a variable block and a heart rate of 123 bpm. [facility] Medical History Atrial fibrillation Atrial flutter COPD (chronic obstructive pulmonary disease) Essential (primary) hypertension Obesity Syncope Varicose veins of both lower extremities with complications Venous insufficiency Surgical History Hx of appendectomy Family History Other Cancer Heart disease Hypertension Myocardial infarction Social History Smoking Status: Former smoker alcohol intake: current Const Const: Negative for fatigue, weakness, headache(s), daytime sleepiness or difficulty sleeping ENT ENT: Negative for headache(s), dizziness or Nosebleed/epistaxis Cardio Chest Pain: No Palpitations: No Edema: None Resp Respiratory: Positive for SOB with activity; Negative for SOB at rest, SOB orthopnea\SOB lying down or Cough GI GI: Negative nausea, vomiting or heartburn Neuro Neuro: Negative for dizziness, lightheadedness, near syncope, headache(s) or weakness Endo Endo: Negative for fatigue Physical exam: General HEENT: Head normocephalic, PERRLA, hearing normal, nares normal, oropharynx moist mucous membranes. Respiratory: Normal breath sounds bilateral. Cardiac: Irregularly irregular, no murmurs no gallops no rubs GI: Soft nontender bowel sounds present Neuro: Cranial nerves II through XII intact. (1) Atrial flutter: Status: Acute Plan: He does have atrial flutter with a variable block. My recommendation at this time will be to increase his beta-gerber to metoprolol 100 mg in the morning and 50 mg in the evening of the long-acting, to continue the Xarelto and for us to consider an interval DC cardioversion. An echocardiogram should be performed in the interim to assess his ventricular function and depending on the findings further recommendations will be made. It appears he does have a snoring history and we may want to consider sleep apnea evaluation as well at some point. I have discussed the above with him and his they understand and agree to proceed.
[2025-05-07 08:57] VITALS: BMI 48.0
--- OUTSIDE RECORDS SUMMARY | 2025-05-10 08:39 | XMS RPT_ITS | CCD ---
Author Organization [facility] Care Team Providers Care Press Operator Printing Name Role Phone Dr. Hernandez Dupree DO Primary Care Provider Dr. Hernandez Dupree DO Attending Provider [phone] Dr. Hernandez Dupree DO Referring Provider [phone] Yuni SARABIA, Dr. Robert Attending Provider [phone] Yuni SARABIA, Dr. Robert Referring Provider [phone] Yuni SARABIA, Dr. Robert Other Provider YuniAndreaPlains Attending Unavailable Yuni, Jakob Referring Unavailable Joon, Hernandez Primary Care Unavailable Yuni, Jakob Attending Unavailable Joon, Hernandez Primary Care Unavailable Yuni, Jakob Referring Unavailable JoonHernandez harris Attending Unavailable Joon, Hernandez Referring Unavailable Joon, Hernandez Primary Care Unavailable Yuni, Plains Attending Unavailable Yuni, Jakob Referring Unavailable Joon, Hernandez Primary Care Unavailable Yuni, Plains Attending Unavailable Joon, Hernandez Primary Care Unavailable Yuni, Plains Attending Unavailable Yuni, Plains Referring Unavailable Joon, Hernandez Primary Care Unavailable Yuni, Plains Consulting Unavailable Yuni, Plains Attending Unavailable Joon, Hernandez Referring Unavailable Joon, Hernandez Primary Care Unavailable Medications Current Medications Medication Drug Class(es) Dates Sig (Normalized) Sig (Original) ascorbic acid 1000 mg oral tablet (3 sources) Vitamin C Start: 03-22-2025 take 1 tablet by mouth once daily Ascorbic Acid (Vitamin C) 1,000 mg tablet Active 1000 mg PO daily March 22, 2025 12:00am cholecalciferol 0.05 mg oral capsule (3 sources) Vitamin D Start: 03-22-2025 take 1 capsule by mouth once daily Cholecalciferol (Vitamin D3) 50 mcg (2,000 unit) capsule Active 50 ug PO daily March 22, 2025 12:00am furosemide 40 mg oral tablet (6 sources) Loop Diuretic Start: 03-22-2025 End: 03-22-2025 take 2 tablets by mouth once daily in the morning Furosemide (Lasix) 40 mg tablet Active 80 mg PO EVERY MORNING March 22, 2025 10:12am Ixmzvesuwsi-F4-Pgfdif karla Serr (Glucosamine Daily Complex) 1,500-400-100 mg-unit-mg tablet (3 sources) Start: 03-22-2025 take 1 tablet by mouth once daily at mealtime Xrynefpdzfc-L0-Yhdtm llia Serr (Glucosamine Daily Complex) 1,500-400-100 mg-unit-mg tablet Active 3 {tbl} PO daily March 22, 2025 12:00am give after food/meal 24 hr metoprolol succinate 50 mg extended release oral tablet (6 sources) beta-Adrenergic Niko Start: 04-07-2025 take 1 [...] daily March 22, 2025 12:00am Multivitamin tablet (3 sources) Start: 03-22-2025 Multivitamin t ablet Active 1 {tbl} PO daily March 22, 2025 12:00am rivaroxaban 20 mg oral tablet (3 sources) Factor Xa Inhibitor Start: 03-22-2025 take 1 tablet by mouth once daily at dinner Rivaroxaban (Xarelto) 20 mg tablet Active 20 mg PO daily March 22, 2025 12:00am must administer with evening meal Tirzepatide (Weight Loss) (3 sources) Start: 03-22-2025 Tirzepatide (W eight Loss) (Zepbound) 2.5 mg/0.5 mL pen injector Active 2.5 mg SC EVERY WEEK March 22, 2025 12:00am for 4 weeks tumeric 500mg (3 sources) Start: 03-22-2025 tumeric 500mg Active PO March 22, 2025 12:00am Completed/Discontinued Medications Medication Drug Class(es) Dates Sig (Normalized) Sig (Original) Testosterone Health (3 sources) Start: 03-22-2025 End: 04-07-2025 Testosterone Health Discontinued PO DAILY March 22, 2025 12:00am April 07, 2025 1:13pm Problems Problem Classification Problem Date Documented Date Episodic/Chronic Cardiac dysrhythmias (11 sources) Atrial fibrillation; Translations: [Unspecified atrial fibrillation] Onset: 04-23-2025 03-22-2025 Chronic Chronic obstructive pulmonary disease and bronchiectasis (3 sources) Chronic obstructive lung disease; Translations: [Chronic obstructive pulmonary disease, unspecified] 03-22-2025 Chronic Essential hypertension (4 sources) Essential hypertension; Translations: [Essential (primary) hypertension] Onset: 04-07-2025 03-22-2025 Chronic Other diseases of veins and lymphatics (3 sources) Vascular insufficiency; Translations: [Venous insufficiency (chronic) (peripheral)] 03-22-2025 Episodic Other nutritional; endocrine; and metabolic disorders (3 sources) Obesity; Translations: [Obesity, unspecified] 03-22-2025 Chronic Syncope (7 sources) Syncope; Translations: [Syncope and collapse] Onset: 04-07-2025 03-22-2025 Episodic Varicose veins of lower extremity (3 sources) Varicose veins of lower extremity; Translations: [Varicose veins of bilateral lower extremities with other complications] 03-22-2025 Episodic Results Test Name Value Interpretation Reference Range Facility Anion gap in Serum or Plasma Ordered By: Jakob Morrissey on 04-26-2025 Anion gap [Moles/Vol] 12 mmol/L 02-11 [facility] BUN/creatinine ratioOrdered By: Jakob Morrissey on 04-26-2025 Urea nitrogen/Creatinine [Mass ratio] 14.3 mg/mg 07-19 [facility] Basic Metabolic Profile (BMP )on 04-26-2025 BUN/CRE 14.3 RATIO Normal 07-19 [facility] Comment on above: Performed By: #### L 500.2500 ####[facility] [address] [place], [address] Calcium [Mass/Vol] 9.5 mg/dL Normal 7.6-11.0 [facility] Comment on above: Performed By: #### L 500.2500 ####[facility] [address] [place], [address] Chloride [Moles/Vol] 103 mmol/L Normal 98-108 [facility] Comment on above: Performed By: #### L 500.2500 ####[facility] [address] [place], [address] CO2 [Moles/Vol] 25.1 mmol/L Normal 21.0-32.0 [facility] Comment on above: Performed By: #### L 500.2500 ####[facility] [address] [place], [address] Creatinine [Mass/Vol] 1.03 mg/dL Normal 0.70-1.20 [facility] Comment on above: Performed By: #### L 500.2500 ####[facility] [address] [place], [address] GAP 12 Normal 5-15 [facility] Comment on above: Performed By: #### L 500.2500 ####[facility] [address] [place], [address] GFR/1.73 sq M.predicted among non-blacks MDRD (S/P/Bld) [Vol rate/Area] 84 mL/min/{1.73_m2} Normal >60 [facility] Comment on above: Result Comment: mL/m in/1.73m2 CKD-EPI Creatinine Equation (2020) Performed By: #### L 500.2500 ####[facility] [address] [place], [address] Glucose [Mass/Vol] 100 mg/dL High 70-99 [facility] Comment on above: Performed By: #### L 500.2500 ####[facility] [address] [place], [address] Potassium [Moles/Vol] 4.6 mmol/L Normal 3.3-5.1 [facility] Comment on above: Performed By: #### L 500.2500 ####[facility] [address] [place], [place], [id number] Sodium [Moles/Vol] 140 mmol/L Normal 133-145 [facility] Comment on above: Performed By: #### L 500.2500 ####[facility] [address] [place], [place], [id number] Urea nitrogen [Mass/Vol] 15 mg/dL Normal 4-19 [facility] Comment on above: Performed By: #### L 500.2500 ####[facility] [address] [place], [address] Carbon dioxide, total [Moles /volume] in Central venous bloodOrdered By: Jakobmat Morrissey on 04-26-2025 CO2 [Moles/Vol] 25.1 mmol/L 21.0-32.0 [facility] Chloride assayOrdered By: Cy ril Yuni on 04-26-2025 Chloride [Moles/Vol] 103 mmol/L 98-108 [facility] Glomerular filtration rate ( GFR) estimation/1.73 sq m using serum, plasma, or whole bOrdered By: Jakob Yuni on 04-26-2025 GFR/1.73 sq M.predicted among non-blacks MDRD (S/P/Bld) [Vol rate/Area] 84 mL/min/{1.73_m2} >60 [facility] Comment on above: mL/min/1.73m2 CKD-EP I Creatinine Equation (2020) Potassium measurement (mass/ volume)Ordered By: Jakob Yuni on 04-26-2025 Potassium (Unsp spec) [Mass/Vol] 4.6 mmol/L 3.3-5.1 [facility] Serum creatinine measurement (mass/volume)Ordered By: Jakob Yuni on 04-26-2025 Creatinine [Mass/Vol] 1.03 mg/dL 0.70-1.20 [facility] Serum glucose measurement (m ass/volume)Ordered By: Plains Yuni on 04-26-2025 Glucose [Mass/Vol] 100 mg/dL High 70-99 [facility] Serum or plasma calcium atul urement (mass/volume)Ordered By: Jakob Morrissey on 04-26-2025 Calcium [Mass/Vol] 9.5 mg/dL 7.6-11.0 [facility] Serum or plasma urea nitroge n measurement (mass/volume)Ordered By: Jakob Morrissey on 04-26-2025 Urea nitrogen [Mass/Vol] 15 mg/dL 4-19 [facility] Sodium levelOrdered By: Jerry Morrissey on 04-26-2025 Sodium [Moles/Vol] 140 mmol/L 133-145 [facility] Echocardiogram study reportO rdered By: Jakob Morrissey on 04-20-2025 Study report [facility] [address] [place] [address] Echo Complete W/ Contrast 04/17/25 0955 MR#: [id number] Acct: [id number] Name: DAVIDJEMAL Jr. Rep #:[id number] : 1965 59 From: Jakob Graves Attending Dr: Dr. Jakob Morrissey MD S tatus: REG CLI Ordering Dr: Jakob Morrissey MD Date: Location: [facility] Sex: M C Admitted: Reason For Study Reason For Study: ATRIAL FLUTTER Procedure This was a 2D Doppler, Color Flow transthoracic echocardiogram. Contrast injection was performed. The study was technically difficult. Exam performed in department. Left Ventricle Mildly dilated left ventricle. Moderate concentric left ventricular hypertrophy.The left ventricular ejection fraction is 35 %. Stage 2 diastolic dysfunction. Right Ventricle Normal RV size. Normal systolic function. Atria The left atrium is moderately enlarged. The right atrium is mildly enlarged. Mitral Valve Normal mitral valve. Tricuspid Valve Normal tricuspid valve. Aortic Valve The aortic valve is not well visualized. Pulmonic Valve Normal pulmonic valve. Great Vessels Normal aortic root. The pulmonary artery is normal size. Inferior vena cava collapse with respiration. Pericardium/Pleural No pericardial effusion. Medication Diluted definity 2ml given slow IV push to enhance endocardial definition. MMode/2D Measurements & Calculations LVIDd: 5.8 cm IVSd: 1.5 cm Ao root diam: 3.6 cm LVIDs: 4.7 cm LVPWd: 1.4 cm RVDd: 3.7 cm FS: 18.9 % LAV(MOD-bp): 115.9 ml LVAd ap4: 39.8 cm2 LVAd ap2: 37.8 cm2 LAV(MOD-bp) Indexed: 46.3 ml/m2 LVLd ap4: 9.6 cm LVLd ap2: 9.5 cm LAV(MOD-sp2): 101.3 ml EDV(MOD-sp4): 136.1 ml EDV(MOD-sp2): 124.7 ml LAV(MOD-sp4): 117.9 ml EDV(sp4-el): 140.5 ml EDV(sp2-el): 127.8 ml LVAs ap4: 31.2 cm2 LVAs ap2: 28.5 cm2 LVLs ap4: 8.8 cm LVLs ap2: 8.1 cm ESV(MOD-sp4): 90.4 ml ESV(MOD-sp2): 83.7 ml ESV(sp4-el): 93.8 ml ESV(sp2-el): 85.0 ml EF(MOD-sp4): 33.6 % EF(MOD-sp2): 32.9 % EF(sp4-el): 33.2 % SV(MOD-sp4): 45.8 ml SV(MOD-sp2): 41.1 ml SV(sp4-el): 46.7 ml SI(MOD-sp4): 18.3 ml/m2 SI(MOD-sp2): 16.4 ml/m2 LA A4 area: 31.2 cm2 LA dimension(2D): 5.7 cm RA A4 area: 23.2 cm2 TAPSE: 1.5 cm Time Measurements MV dec time: 0.13 sec Doppler Measurements & Calculations MV E max chente: 82.8 cm/sec MV V2 max: 116.5 cm/sec MV P1/2t max chente: 117.8 cm/sec MV A max chente: 43.2 cm/sec MV max P.4 mmHg MV P1/2t: 50.2 msec MV E/A: 1.9 MV V2 mean: 58.0 cm/sec MV decslope: 687.5 cm/sec2 MV mean P.7 mmHg MVA(P1/2t): 4.4 cm2 MV V2 VTI: 19.5 cm Ao V2 max: 142.3 cm/sec LV V1 max: 78.0 cm/sec MR maxvel: 398.4 cm/sec Ao max P.1 mmHg LV V1 max P.4 mmHg MR maxP.5 mmHg Ao V2 mean: 106.0 cm/sec LV V1 mean P.3 mmHg MR mean chente: 295.9 cm/sec Ao mean P.8 mmHg LV V1 mean: 54.3 cm/sec MR mean P.0 mmHg Ao V2 VTI: 24.4 cm LV V1 VTI: 13.7 cm MR VTI: 80.8 cm AV (velocity ratio): 0.56 PA V2 max: 63.8 cm/sec PA V2 mean: 41.1 cm/sec PA V2 VTI: 10.0 cm ECHO/Echo Complete W/ Contrast Interpretation Summary Mildly dilated left ventricle. Moderate concentric left ventricular hypertrophy. The left ventricular ejection fraction is 35 %. Stage 2 diastolic dysfunction. Ordering Physician: Jakob Morrissey Referring Physician: Jakob Morrissey Performed By: Ramona Wise RDCS, RVT 04/20/25 1732 Date _ Jakob Morrissey MD CC: Dr. Jakob Morrissey MD; Dr. Hernandez Dupree DO ~ Date Dictated: 04/17/25954 Date Transcribed: 04/20/251731 Stacker Attendant: Signed [facility] Work Phone: Echo Complete W/ Contraston 04-17-2025 Echo Complete W/ Contrast [facility] [address] [place] [address] Echo Complete W/ Contrast 04/17/25954 MR#: [id number] Acct: [id number] Name: JEMAL HERNANDEZ Jr. Rep #: [id number] : 1965 59 From: Jakob Morrissey MD Attending Dr: Dr. Jakob Morrissey MD Status: [facility] Ordering Dr: Jakob Morrissey MD Date: 04/17/25 Location: [facility] Sex: M C Admitted: Reason For Study Reason For Study: ATRIAL FLUTTER Procedure This was a 2D Doppler, Color Flow transthoracic echocardiogram. Contrast injection was performed. The study was technically difficult. Exam performed in department. Left Ventricle Mildly dilated left ventricle. Moderate concentric left ventricular hypertrophy. The left ventricular ejection fraction is 35 %. Stage 2 diastolic dysfunction. Right Ventricle Normal RV size. Normal systolic function. Atria The left atrium is moderately enlarged. The right atrium is mildly enlarged. Mitral Valve Normal mitral valve. Tricuspid Valve Normal tricuspid valve. Aortic Valve The aortic valve is not well visualized. Pulmonic Valve Normal pulmonic valve. Great Vessels Normal aortic root. The pulmonary artery is normal size. Inferior vena cava collapse with respiration. Pericardium/Pleural No pericardial effusion. Medication Diluted definity 2ml given slow IV push to enhance endocardial definition. MMode/2D Measurements Calculations LVIDd: 5.8 cm IVSd: 1.5 cm Ao root diam: 3.6 cm LVIDs: 4.7 cm LVPWd: 1.4 cm RVDd: 3.7 cm FS: 18.9 % LAV(MOD-bp): 115.9 ml LVAd ap4: 39.8 cm2 LVAd ap2: 37.8 cm2 LAV(MOD-bp) Indexed: 46.3 ml/m2 LVLd ap4: 9.6 cm LVLd ap2: 9.5 cm LAV(MOD-sp2): 101.3 ml EDV(MOD-sp4): 136.1 ml EDV(MOD-sp2): 124.7 ml LAV(MOD-sp4): 117.9 ml EDV(sp4-el): 140.5 ml EDV(sp2-el): 127.8 ml LVAs ap4: 31.2 cm2 LVAs ap2: 28.5 cm2 LVLs ap4: 8.8 cm LVLs ap2: 8.1 cm ESV(MOD-sp4): 90.4 ml ESV(MOD-sp2): 83.7 ml ESV(sp4-el): 93.8 ml ESV(sp2-el): 85.0 ml EF(MOD-sp4): 33.6 % EF(MOD-sp2): 32.9 % EF(sp4-el): 33.2 % SV(MOD-sp4): 45.8 ml SV(MOD-sp2): 41.1 ml SV(sp4-el): 46.7 ml SI(MOD-sp4): 18.3 ml/m2 SI(MOD-sp2): 16.4 ml/m2 LA A4 area: 31.2 cm2 LA dimension(2D): 5.7 cm RA A4 area: 23.2 cm2 TAPSE: 1.5 cm Time Measurements MV dec time: 0.13 sec Doppler Measurements Calculations MV E max chente: 82.8 cm/sec MV V2 max: 116.5 cm/sec MV P1/2t max chente: 117.8 cm/sec MV A max chente: 43.2 cm/sec MV max P.4 mmHg MV P1/2t: 50.2 msec MV E/A: 1.9 MV V2 mean: 58.0 cm/sec MV dec slope: 687.5 cm/sec2 MV mean P.7 mmHg MVA(P1/2t): 4.4 cm2 MV V2 VTI: 19.5 cm Ao V2 max: 142.3 cm/sec LV V1 max: 78.0 cm/sec MR max chente: 398.4 cm/sec Ao max P.1 mmHg LV V1 max P.4 mmHg MR max P.5 mmHg Ao V2 mean: 106.0 cm/sec LV V1 mean P.3 mmHg MR mean chente: 295.9 cm/sec Ao mean P.8 mmHg LV V1 mean: 54.3 cm/sec MR mean P.0 mmHg Ao V2 VTI: 24.4 cm LV V1 VTI: 13.7 cm MR VTI: 80.8 cm AV (velocity ratio): 0.56 PA V2 max: 63.8 cm/sec PA V2 mean: 41.1 cm/sec PA V2 VTI: 10.0 cm ECHO/Echo Complete W/ Contrast Interpretation Summary Mildly dilated left ventricle. Moderate concentric left ventricular hypertrophy. The left ventricular ejection fraction is 35 %. Stage 2 diastolic dysfunction. Ordering Physician: Jakob Morrissey Referring Physician: Jakob Morrissey Performed By: Ramona Wise, RDCS, RVT 04/20/251731 Date Jakob Morrissey MD CC: Dr. Jakob Morrissey MD; Dr. Hernandez Dupree DO Date Dictated: 04/17/25954 Date Transcribed: 04/20/251731 Stacker Attendant: Signed Normal [facility] Cardiology Visit Reporton Cardiology Visit Report [facility] [address] [place] [address] OFFICE VISIT Date of Service: 04/07/25 MR#: [id number] Acct: [id number] Name: JEMAL HERNANDEZ Jr. Rep #: [id number] : 1965 Provider: Dr. Jakob Morrissey MD Age/Sex: 59/M Location: [facility] Status: Signed HPI HPI History of Present [...] Monitor Intake Visit Reasons: NEW ONSET AFIB (JOON) Market Survey Representative Required: No Accompanied by: Significant Other Is [...] PO QAM 03/22/25 04/07/25 His tory glucosamine RPx-A3-Exmlyxkkb 3 tab PO QDAY 03/22/25 04/07/25 Hi [...] apnea evaluation (more content not included)... Normal [facility] Absolute lymphocyte countOrd ered By: Hernandez Dupree on 02-16-2025 Lymphocytes Auto (Unsp spec) [#/Vol] 2.38 10*3/uL 0.83-4.51 [facility] Absolute neutrophil countOrd ered By: Hernandez Dupree on 02-16-2025 Neutrophils (Bld) [#/Vol] 6.0 10*3/uL 2.0-7.7 [facility] Anion gap in Serum or Plasma Ordered By: Hernandez Dupree on 02-16-2025 Anion gap [Moles/Vol] 11 mmol/L 5-15 [facility] Automated lymphocyte count a s percentage of total leukocytesOrdered By: Hernandez Dupree on 02-16-2025 Lymphocytes/100 WBC Auto (Unsp spec) 25.6 % 19- [facility] BUN/creatinine ratioOrdered By: Hernandez Dupree on 02-16-2025 Urea nitrogen/Creatinine [Mass ratio] 16.0 mg/mg - [facility] Basophil percentageOrdered B y: Hernandez Dupree on 02-16-2025 Basophils/100 WBC (Bld) 0.5 % 0-1 [facility] Bilirubin, totalOrdered By: Hernandez Dupree on 02-16-2025 Bilirubin [Mass/Vol] 0.68 mg/dL 0.00-1.30 [facility] CBC W/Diff, Automatedon 01-29 Absolute Lymph 2.38 X10 3/uL Normal 0.83-4.51 [facility] Comment on above: Performed By: #### L 501.9520, L501.5200, L501.9910, L100.0100, L503.7505, L500.4100, L500.4050, L501.9985 #### [facility] [address] [place], [address] Absolute Neut 6.0 X10 3/uL Normal 2.0-7.7 [facility] Comment on above: Performed By: #### L 501.9520, L501.5200, L501.9910, L100.0100, L503.7505, L500.4100, L500.4050, L501.9985 #### [facility] [address] [place], [address] Basophils/100 WBC (Bld) 0.5 % Normal 0-1 [facility] Comment on above: Performed By: #### L 501.9520, L501.5200, L501.9910, L100.0100, L503.7505, L500.4100, L500.4050, L501.9985 #### [facility] [address] [place], [address] Eosinophils/100 WBC (Bld) 1.0 % Normal 0-5 [facility] Comment on above: Performed By: #### L 501.9520, L501.5200, L501.9910, L100.0100, L503.7505, L500.4100, L500.4050, L501.9985 #### [facility] [address] [place], [address] Erythrocyte distribution width (RBC) [Ratio] 13.4 % Normal 11.6-14.6 [facility] Comment on above: Performed By: #### L 501.9520, L501.5200, L501.9910, L100.0100, L503.7505, L500.4100, L500.4050, L501.9985 #### [facility] [address] [place], [address] Hematocrit (Bld) [Volume fraction] 50.5 % Normal 40-54 [facility] Comment on above: Performed By: #### L 501.9520, L501.5200, L501.9910, L100.0100, L503.7505, L500.4100, L500.4050, L501.9985 #### [facility] [address] [place], [address] Hemoglobin (Bld) [Mass/Vol] 16.6 g/dL High 13.0-16.5 [facility] Comment on above: Performed By: #### L 501.9520, L501.5200, L501.9910, L100.0100, L503.7505, L500.4100, L500.4050, L501.9985 #### [facility] [address] [place], [address] IG% 0.500 Normal 0.0-0.9 [facility] Comment on above: Result Comment: IG% - Immature Granulocytes (promyelocytes, myelocytes and metamyelocytes) > 1% indicates that a LEFT SHIFT is Present. Performed By: #### L 501.9520, L501.5200, L501.9910, L100.0100, L503.7505, L500.4100, L500.4050, L501.9985 #### [facility] [address] [place], [address] Lymphocytes/100 WBC (Bld) 25.6 % Normal 19-41 [facility] Comment on above: Performed By: #### L 501.9520, L501.5200, L501.9910, L100.0100, L503.7505, L500.4100, L500.4050, L501.9985 #### [facility] [address] [place], [address] MCH (RBC) [Entitic mass] 31.5 pg Normal 27.0-32.0 [facility] Comment on above: Performed By: #### L 501.9520, L501.5200, L501.9910, L100.0100, L503.7505, L500.4100, L500.4050, L501.9985 #### [facility] [address] [place], [address] MCHC (RBC) [Mass/Vol] 32.9 g/dL Normal 32-36 [facility] Comment on above: Performed By: #### L 501.9520, L501.5200, L501.9910, L100.0100, L503.7505, L500.4100, L500.4050, L501.9985 #### [facility] [address] [facility] [place], [address] MCV (RBC) [Entitic vol] 95.8 fL High 80-94 [facility] Comment on above: Performed By: #### L 501.9520, L501.5200, L501.9910, L100.0100, L503.7505, L500.4100, L500.4050, L501.9985 #### [facility] [address] [facility] [place], [address] Monocytes/100 WBC (Bld) 8.0 % Normal 0-10 [facility] Comment on above: Performed By: #### L 501.9520, L501.5200, L501.9910, L100.0100, L503.7505, L500.4100, L500.4050, L501.9985 #### [facility] [address] [place], [address] Neutrophils/100 WBC (Bld) 64.4 % Normal 47-70 [facility] Comment on above: Performed By: #### L 501.9520, L501.5200, L501.9910, L100.0100, L503.7505, L500.4100, L500.4050, L501.9985 #### [facility] [address] [place], [address] Nucleated RBC (Bld) [#/Vol] 0 10*3/uL Normal 0-5 [facility] Comment on above: Performed By: #### L 501.9520, L501.5200, L501.9910, L100.0100, L503.7505, L500.4100, L500.4050, L501.9985 #### [facility] [address] [place], [address] Platelet mean volume (Bld) [Entitic vol] 10.6 fL Normal 6.2-12.0 [facility] Comment on above: Performed By: #### L 501.9520, L501.5200, L501.9910, L100.0100, L503.7505, L500.4100, L500.4050, L501.9985 #### [facility] [address] [place], [address] Platelets (Bld) [#/Vol] 205 10*3/uL Normal 150-450 [facility] Comment on above: Performed By: #### L 501.9520, L501.5200, L501.9910, L100.0100, L503.7505, L500.4100, L500.4050, L501.9985 #### [facility] [address] [place], [address] RBC (Bld) [#/Vol] 5.27 10*6/uL Normal 4.6-6.2 [facility] Comment on above: Performed By: #### L 501.9520, L501.5200, L501.9910, L100.0100, L503.7505, L500.4100, L500.4050, L501.9985 #### [facility] [address] [place], [address] RDW SD 47.7 fl High 35.1-43.9 [facility] Comment on above: Performed By: #### L 501.9520, L501.5200, L501.9910, L100.0100, L503.7505, L500.4100, L500.4050, L501.9985 #### [facility] [address] [place], [address] WBC (Bld) [#/Vol] 9.3 10*3/uL Normal 4.4-11.0 [facility] Comment on above: Performed By: #### L 501.9520, L501.5200, L501.9910, L100.0100, L503.7505, L500.4100, L500.4050, L501.9985 #### [facility] [address] [facility] [address] [place], [place], [address] Calculated very low density lipoprotein (VLDL) cholesterol measurementOrdered By: Hernandez Dupree on 02-16-2025 Calculated very low density lipoprotein (VLDL) cholesterol measurement 26 mg/dL 5-40 [facility] Carbon dioxide, total [Moles /volume] in Central venous bloodOrdered By: Hernandez Dupree on 02-16-2025 CO2 [Moles/Vol] 24.4 mmol/L 21.0-32.0 [facility] Chloride assayOrdered By: Cassius Dupree on 02-16-2025 Chloride [Moles/Vol] 105 mmol/L 98-108 [facility] Comprehensive Metabolic Prof ilon 02-16-2025 Albumin [Mass/Vol] 4.2 g/dL Normal 3.5-5.0 [facility] Comment on above: Performed By: #### L 501.9520, L501.5200, L501.9910, L100.0100, L503.7505, L500.4100, L500.4050, L501.9985 #### [facility] [address] [place], [address] Albumin/Globulin [Mass ratio] 1.4 {ratio} Normal 0.9-2.4 [facility] Comment on above: Performed By: #### L 501.9520, L501.5200, L501.9910, L100.0100, L503.7505, L500.4100, L500.4050, L501.9985 #### [facility] [address] [place], [address] ALK PHOS 99 U/L Normal 40-129 [facility] Comment on above: Performed By: #### L 501.9520, L501.5200, L501.9910, L100.0100, L503.7505, L500.4100, L500.4050, L501.9985 #### [facility] [address] [place], [place], [phone] (502) ALT [Catalytic activity/Vol] 28 U/L Normal <=46 [facility] Comment on above: Performed By: #### L 501.9520, L501.5200, L501.9910, L100.0100, L503.7505, L500.4100, L500.4050, L501.9985 #### [facility] [address] [place], [address] AST [Catalytic activity/Vol] 25 U/L Normal <=37 [facility] Comment on above: Performed By: #### L 501.9520, L501.5200, L501.9910, L100.0100, L503.7505, L500.4100, L500.4050, L501.9985 #### [facility] [address] [place], [address] Bilirubin [Mass/Vol] 0.68 mg/dL Normal 0.00-1.30 [facility] Comment on above: Performed By: #### L 501.9520, L501.5200, L501.9910, L100.0100, L503.7505, L500.4100, L500.4050, L501.9985 #### [facility] [address] [place], [address] BUN/CRE 16.0 RATIO Normal 10-20 [facility] Comment on above: Performed By: #### L 501.9520, L501.5200, L501.9910, L100.0100, L503.7505, L500.4100, L500.4050, L501.9985 #### [facility] [address] [place], [address] Calcium [Mass/Vol] 9.8 mg/dL Normal 7.6-11.0 [facility] Comment on above: Performed By: #### L 501.9520, L501.5200, L501.9910, L100.0100, L503.7505, L500.4100, L500.4050, L501.9985 #### [facility] [address] [place], [address] Chloride [Moles/Vol] 105 mmol/L Normal 98-108 [facility] Comment on above: Performed By: #### L 501.9520, L501.5200, L501.9910, L100.0100, L503.7505, L500.4100, L500.4050, L501.9985 #### [facility] [address] [place], [address] CO2 [Moles/Vol] 24.4 mmol/L Normal 21.0-32.0 [facility] Comment on above: Performed By: #### L 501.9520, L501.5200, L501.9910, L100.0100, L503.7505, L500.4100, L500.4050, L501.9985 #### [facility] [address] [place], [address] Creatinine [Mass/Vol] 0.88 mg/dL Normal 0.70-1.20 [facility] Comment on above: Performed By: #### L 501.9520, L501.5200, L501.9910, L100.0100, L503.7505, L500.4100, L500.4050, L501.9985 #### [facility] [address] [place], [address] GAP 11 Normal 5-15 [facility] Comment on above: Performed By: #### L 501.9520, L501.5200, L501.9910, L100.0100, L503.7505, L500.4100, L500.4050, L501.9985 #### [facility] [address] [place], [place], [phone] (941 GFR/1.73 sq M.predicted among non-blacks MDRD (S/P/Bld) [Vol rate/Area] 100 mL/min/{1.73_m2} Normal >60 [facility] Comment on above: Result Comment: mL/m in/1.73m2 CKD-EPI Creatinine Equation (2020) Performed By: #### L 501.9520, L501.5200, L501.9910, L100.0100, L503.7505, L500.4100, L500.4050, L501.9985 #### [facility] [address] [place], [place], [phone] (300) Globulin (S) [Mass/Vol] 3.0 g/dL Normal 2.2-4.2 [facility] Comment on above: Performed By: #### L 501.9520, L501.5200, L501.9910, L100.0100, L503.7505, L500.4100, L500.4050, L501.9985 #### [facility] [address] [place], [place], [phone] (654) Glucose [Mass/Vol] 85 mg/dL Normal 70-99 [facility] Comment on above: Performed By: #### L 501.9520, L501.5200, L501.9910, L100.0100, L503.7505, L500.4100, L500.4050, L501.9985 #### [facility] [address] [place], [address] Potassium [Moles/Vol] 4.4 mmol/L Normal 3.3-5.1 [facility] Comment on above: Performed By: #### L 501.9520, L501.5200, L501.9910, L100.0100, L503.7505, L500.4100, L500.4050, L501.9985 #### [facility] [address] [place], [address] Sodium [Moles/Vol] 141 mmol/L Normal 133-145 [facility] Comment on above: Performed By: #### L 501.9520, L501.5200, L501.9910, L100.0100, L503.7505, L500.4100, L500.4050, L501.9985 #### [facility] [address] [place], [address] T PROT 7.2 g/dL Normal 5.9-8.4 [facility] Comment on above: Performed By: #### L 501.9520, L501.5200, L501.9910, L100.0100, L503.7505, L500.4100, L500.4050, L501.9985 #### [facility] [address] [place], [address] Urea nitrogen [Mass/Vol] 14 mg/dL Normal 4-19 [facility] Comment on above: Performed By: #### L 501.9520, L501.5200, L501.9910, L100.0100, L503.7505, L500.4100, L500.4050, L501.9985 #### [facility] [address] [place], [address] Eosinophil percentageOrdered By: Hernandez Dupree on 02-16-2025 Eosinophils/100 WBC (Bld) 1.0 % 0-5 [facility] Erythrocyte distribution wid th ratioOrdered By: Hernandez Dupree on 02-16-2025 Erythrocyte distribution width (RBC) [Ratio] 13.4 % 11.6-14.6 [facility] Erythrocyte distribution wid th standard deviationOrdered By: Hernandez Dupree on 02-16-2025 Erythrocyte distribution width (RBC) [Ratio] 47.7 fl High 35.1-43.9 [facility] Glomerular filtration rate ( GFR) estimation/1.73 sq m using serum, plasma, or whole bOrdered By: Hernandez Dupree on 02-16-2025 GFR/1.73 sq M.predicted among non-blacks MDRD (S/P/Bld) [Vol rate/Area] 100 mL/min/{1.73_m2} >60 [facility] Comment on above: mL/min/1.73m2 CKD-EP I Creatinine Equation (2020) Hematocrit Auto (Bld) [Volum e fraction]Ordered By: Hernandez Dupree on 02-16-2025 Hematocrit (Bld) [Volume fraction] 50.5 % 40-54 [facility] Hemoglobin A1con 02-16-2025 HbA1c (Bld) [Mass fraction] 5.9 % High <=5.6 [facility] Comment on above: Result Comment: Norm al < 5.7 % Prediabetic 5.7 - 6.4 % Diabetic >or= 6.5 % Please note range changes. Performed By: #### L 501.9520, L501.5200, L501.9910, L100.0100, L503.7505, L500.4100, L500.4050, L501.9985 #### [facility] [address] [place], [address] Hemoglobin A1c percentageOrd ered By: Hernandez Dupree on 02-16-2025 HbA1c (Bld) [Mass fraction] 5.9 % High <5.7 [facility] Comment on above: Normal < 5.7 % Predi abetic 5.7 - 6.4 % Diabetic >or= 6.5 % Please note range changes. Hemoglobin measurementOrdere d By: Hernandez Dupree on 02-16-2025 Hemoglobin (Bld) [Mass/Vol] 16.6 g/dL High 13.0-16.5 [facility] Immature granulocytes/100 WB C Auto (Bld)Ordered By: Hernandez Dupree on 02-16-2025 Immature granulocytes/100 WBC (Bld) 0.500 % 0.0-0.9 [facility] Comment on above: IG% - Immature Granu locytes (promyelocytes, myelocytes and metamyelocytes) > 1% indicates that a LEFT SHIFT is Present. L503.7505on 02-16-2025 Natriuretic peptide B (Bld) [Mass/Vol] 769 pg/mL Normal <=900 [facility] Comment on above: Result Comment: Hear t Failure Unlikely: < 300 pg/mL Heart Failure Likely < 50 Years: > 450 pg/mL 50-75 Years: > 900 pg/mL >75 Years: > 1800 pg/mL Performed By: #### L 501.9520, L501.5200, L501.9910, L100.0100, L503.7505, L500.4100, L500.4050, L501.9985 ####[facility] [address] [place], [address] LDL calc ser/plasOrdered By: Hernandez Dupree on 02-16-2025 Cholesterol in LDL [Mass/Vol] 135 mg/dL [facility] Comment on above: Nwcgeepkkz=852-535 m g/dL & Higher Udxe=972 mg/dL or greater Laboratory - Chemistry and C hemistry - challengeOrdered By: Hernandez Dupree on 02-16-2025 AST [Catalytic activity/Vol] 25 U/L <38 [facility] Lipid Profileon 02-16-2025 CHOL:HDL 5.99 Normal [facility] Comment on above: Performed By: #### L 501.9520, L501.5200, L501.9910, L100.0100, L503.7505, L500.4100, L500.4050, L501.9985 #### [facility] [address] [place], [address] Cholesterol [Mass/Vol] 193 mg/dL Normal <=200 [facility] Comment on above: Result Comment: Chol esterol level, Desirable <200 mg/dL Borderline high cholesterol 200-239 mg/dL High cholesterol >=240 mg/dL Recommendations of the NCEP Adult Treatment Panel for the following risk-cutoff thresholds for the [place] population. Performed By: #### L 501.9520, L501.5200, L501.9910, L100.0100, L503.7505, L500.4100, L500.4050, L501.9985 #### [facility] [address] [place], [address] Cholesterol in HDL [Mass/Vol] 32 mg/dL Low [facility] Comment on above: Result Comment: Lashay onal Cholesterol Education Program (NCEP) guidelines: <40 mg/dL: Low HDL-cholesterol (major risk factor for CHD) >= 60 mg/dL: High HDL-cholesterol (negative risk factor for CHD) HDL-cholesterol is affected by a number of factors, e.g. smoking, exercise, hormones, sex and age. Performed By: #### L 501.9520, L501.5200, L501.9910, L100.0100, L503.7505, L500.4100, L500.4050, L501.9985 #### [facility] [address] [place], [address] Cholesterol in LDL [Mass/Vol] 135 mg/dL Normal [facility] Comment on above: Result Comment: Bord jiqfcl=692-592 mg/dL Higher Ssnz=994 mg/dL or greater Performed By: #### L 501.9520, L501.5200, L501.9910, L100.0100, L503.7505, L500.4100, L500.4050, L501.9985 #### [facility] [address] [place], [place], [id number] Cholesterol in VLDL [Mass/Vol] 26 mg/dL Normal 5-40 [facility] Comment on above: Performed By: #### L 501.9520, L501.5200, L501.9910, L100.0100, L503.7505, L500.4100, L500.4050, L501.9985 #### [facility] [address] [place], [place], [id number] Triglyceride [Mass/Vol] 129 mg/dL Normal [facility] Comment on above: Result Comment: The drugs N-Acetylcysteine and Metamizole may falsely depress this assay. Normal range: <150 mg/dL Borderline High: 150-199 mg/dL High: 200-499 mg/dL Very High: >500 mg/dL Performed By: #### L 501.9520, L501.5200, L501.9910, L100.0100, L503.7505, L500.4100, L500.4050, L501.9985 #### [facility] [address] [place], [address] MCV (mean corpuscular volume ) determinationOrdered By: Hernandez Dupree on 02-16-2025 MCV (RBC) [Entitic vol] 95.8 fL High 80-94 [facility] Magnesiumon 02-16-2025 Magnesium [Mass/Vol] 2.2 mg/dL Normal 1.5-2.2 [facility] Comment on above: Performed By: #### L 501.9520, L501.5200, L501.9910, L100.0100, L503.7505, L500.4100, L500.4050, L501.9985 #### [facility] [address] [place], [place], [id number] Magnesium measurement (mass/ volume)Ordered By: Hernandez Dupree on 02-16-2025 Magnesium (Unsp spec) [Mass/Vol] 2.2 mg/dL 1.5-2.2 [facility] Mean corpuscular hemoglobin (MCH) determinationOrdered By: Hernandez Dupree on 02-16-2025 MCH (RBC) [Entitic mass] 31.5 pg 27.0-32.0 [facility] Mean corpuscular hemoglobin concentration (MCHC) determinationOrdered By: Hernandez uDpree on 02-16-2025 MCHC (RBC) [Mass/Vol] 32.9 g/dL 32-36 [facility] Mean platelet volume determi nationOrdered By: Hernandez Dupree on 02-16-2025 Platelet mean volume (Bld) [Entitic vol] 10.6 fL 6.2-12.0 [facility] Monocyte percentageOrdered B y: Hernandez Dupree on 02-16-2025 Monocytes/100 WBC (Bld) 8.0 % 0-10 [facility] Natriuretic peptide.B prohor araceli N-Terminal [Mass/volume] in Serum or PlasmaOrdered By: Hernandez Dupree on 02-16-2025 Natriuretic peptide.B prohormone N-Terminal [Mass/Vol] 769 pg/mL <900 [facility] Comment on above: Heart Failure Unlike ly: < 300 pg/mLHeart Failure Likely< 50 Years: > 450 pg/mL50-75 Years: > 900 pg/mL>75 Years: > 1800 pg/mL Neutrophil percentageOrdered By: Hernandez Dupree on 02-16-2025 Neutrophils/100 WBC (Bld) 64.4 % 47-70 [facility] Nucleated red blood cell per centageOrdered By: Hernandez Dupree on 02-16-2025 Nucleated RBC/100 WBC (Bld) [Ratio] 0 % 0-5 [facility] PSA,Total - Annual Screenon 02-16-2025 PSA,TOT SCREEN 0.80 ng/mL Normal 0.02-4.00 [facility] Comment on above: Result Comment: This test [...] confirm baseline values. Performed By: #### L 501.9520, L501.5200, L501.9910, L100.0100, L503.7505, L500.4100, L500.4050, L501.9985 #### [facility] [place], [address] Platelet countOrdered By: Cassius Dupree on 02-16-2025 Platelets (Bld) [#/Vol] 205 10*3/uL 150-450 [facility] Potassium measurement (mass/ volume)Ordered By: Hernandez Dupree on 02-16-2025 Potassium (Unsp spec) [Mass/Vol] 4.4 mmol/L 3.3-5.1 [facility] RBC Auto (Bld) [#/Vol]Ordere d By: Hernandez Dupree on 02-16-2025 RBC (Bld) [#/Vol] 5.27 10*6/uL 4.6-6.2 [facility] Screening total cholesterol/ high density lipoprotein (HDL) cholesterol ratioOrdered By: Hernandez Dupree on 02-16-2025 Cholesterol.total/Choles terol in HDL [Mass ratio] 5.99 {ratio} [facility] Serum creatinine measurement (mass/volume)Ordered By: Hernandez Dupree on 02-16-2025 Creatinine [Mass/Vol] 0.88 mg/dL 0.70-1.20 [facility] Serum globulin measurementOr dered By: Hernandez Dupree on 02-16-2025 Globulin (S) [Mass/Vol] 3.0 g/dL 2.2-4.2 [facility] Serum glucose measurement (m ass/volume)Ordered By: Hernandez Dupree on 02-16-2025 Glucose [Mass/Vol] 85 mg/dL 70-99 [facility] Serum or plasma alanine nelson otransferase (ALT) measurementOrdered By: Hernandez Dupree on 02-16-2025 ALT [Catalytic activity/Vol] 28 U/L <47 [facility] Serum or plasma albumin atul urement (mass/volume)Ordered By: Hernandez Dupree on 02-16-2025 Albumin [Mass/Vol] 4.2 g/dL 3.5-5.0 [facility] Serum or plasma albumin/glob ulin mass ratioOrdered By: Hernandez Dupree on 02-16-2025 Albumin/Globulin [Mass ratio] 1.4 {ratio} 0.9-2.4 [facility] Serum or plasma alkaline lópez sphatase measurementOrdered By: Hernandez Dupree on 02-16-2025 ALP [Catalytic activity/Vol] 99 U/L 40-129 [facility] Serum or plasma calcium atul urement (mass/volume)Ordered By: Hernandez Dupree on 02-16-2025 Calcium [Mass/Vol] 9.8 mg/dL 7.6-11.0 [facility] Serum or plasma cholesterol in HDL measurement (mass/volume)Ordered By: Hernandez Dupree on 02-16-2025 Cholesterol in HDL [Mass/Vol] 32 mg/dL Low >40 [facility] Comment on above: National Cholesterol Education Program (NCEP) guidelines:<40 mg/dL: Low HDL-cholesterol (major risk factor for CHD)>= 60 mg/dL: High HDL-cholesterol (negative risk factor for CHD)HDL-cholesterol is affected by a number of factors, e.g. smoking, exercise, hormones, sex and age. Serum or plasma cholesterol measurement (mass/volume)Ordered By: Hernandez Dupree on 02-16-2025 Cholesterol [Mass/Vol] 193 mg/dL <201 [facility] Comment on above: Cholesterol level, D esirable <200 mg/dLBorderline high cholesterol 200-239 mg/dLHigh cholesterol >=240 mg/dLRecommendations of the NCEP Adult Treatment Panel for the following risk-cutoff thresholds for the [place] population. Serum or plasma urea nitroge n measurement (mass/volume)Ordered By: Hernandez Dupree on 02-16-2025 Urea nitrogen [Mass/Vol] 14 mg/dL 4-19 [facility] Sodium levelOrdered By: Hernandez Dupree on 02-16-2025 Sodium [Moles/Vol] 141 mmol/L 133-145 [facility] TSH DL <= 0.005 mIU/L QnOrde red By: Hernandez Dupree on 02-16-2025 TSH Qn 1.640 uIU/mL 0.300-4.200 [facility] Thyroid Stim Hormone (TSH)on 02-16-2025 TSH 1.640 uIU/mL Normal 0.300-4.200 [facility] Comment on above: Performed By: #### L 501.9520, L501.5200, L501.9910, L100.0100, L503.7505, L500.4100, L500.4050, L501.9985 #### [facility] [place], [address] Total proteinOrdered By: Helen Dupree on 02-16-2025 Protein [Mass/Vol] 7.2 g/dL 5.9-8.4 [facility] Triglycerides measurementOrd ered By: Hernandez Dupree on 02-16-2025 Triglyceride [Mass/Vol] 129 mg/dL <199 [facility] Comment on above: The drugs N-Acetylcy steine and Metamizole may falsely depress this assay. Normal range: <150 mg/dLBorderline High: 150-199 mg/dLHigh: 200-499 mg/dLVery High: >500 mg/dL White blood cell (WBC) count Ordered By: Hernandez Dupree on 02-16-2025 WBC (Bld) [#/Vol] 9.3 10*3/uL 4.4-11.0 [facility] Vital Signs Date Time Vital Sign Value Performing Clinician Charlie lassiter 04-07-2025 13:09-0400 Body height 177.[address] Hernandez Dupree DO Work Phone: [facility] 04-07-2025 13:09-0400 Body mass index (BMI) [Ratio] 44 kg/m2 Dr. Hernandez Dupree DO Work Phone: [facility] 04-07-2025 13:09-0400 Body weight 139.[address] Hernandez Dupree DO Work Phone: [facility] 04-07-2025 13:09-0400 Diastolic blood pressure 78 mm[Hg] Dr. Hernandez Dupree DO Work Phone: [facility] 04-07-2025 13:09-0400 Heart rate 122 /min Dr. Hernandez Dupree DO Work Phone: [facility] 04-07-2025 13:09-0400 Respiratory rate 16 /min Dr. Hernandez Dupree DO Work Phone: [facility] 04-07-2025 13:09-0400 Systolic blood pressure 132 mm[Hg] Dr. Hernandez Dupree DO Work Phone: [facility] Encounters Encounter Date Encounter Type Care Provider Facility Start: 05-10-2025 ambulatory Jakob Morrissye Facility:[facility] Start: 05-06-2025 ambulatory Jakob Morrissey Facility:[facility] Start: 05-06-2025 Non-patient / Non-visit [facility] Jaylen [facility] Start: 04-26-2025 End: 04-26-[address] Hernandez Dupree DO Work Phone: [facility] Start: 04-26-2025 End: 04-26-[address] Jakob Morrissey MD -[facility] Work Phone: Start: 04-26-2025 End: 04-26-2025 ambulatory Jakob Morrissey Facility:[facility] Start: 04-17-2025 Non-patient / Non-visit [facility]. Jaylen [facility] Start: 04-17-2025 End: 04-17-[address] Hernandez Dupree DO Work Phone: -[facility] Start: 04-17-2025 End: 04-17-[address] Jakob Morrissey MD -[facility] Work Phone: Start: 04-17-2025 End: 04-17-2025 ambulatory Jakob Morrissey Facility:[facility] Start: 04-07-2025 End: 04-07-[address] Jakob Morrissey MD -[facility] Work Phone: Start: 04-07-2025 End: 04-07-[address] Hernandez Dupree DO Work Phone: -[facility] Start: 02-16-2025 End: 02-16-[address] Hernandez Dupree DO -[facility] Work Phone: Start: 02-16-2025 End: 02-16-2025 ambulatory Hernandez Dupree Facility:[facility] Procedures Date Procedure Procedure Detail Performing Clinician [...] 04-07-2025 Evaluation of diagno stic study results [facility] Basic metabolic 2008 panel with ionized calcium - Serum or Plasma [facility] spital Cardioversion [facility] Payers Date Payer Category Payer Self-pay [id number] 2025 Self-pay 2025 Unknown [id number] Unknown [id number] 2.16.8 [id number] Unknown [id number] 2.16.8 [id number] Unknown [id number] 2.16.8 [id number] Unknown [id number] 2.16.8 [id number] Unknown [id number] 2.16.8 [id number] Unknown [id number] 2.16.8 [id number] Unknown [id number] 2.16.8 [id number] Social History Date Type Detail Facility Start: 03-22-2025 End: 05-07-2025 Tobacco smoking status NHIS Ex-smoker (finding) [facility] Start: 1965 Sex Assigned At Male [facility] Clinical Note 05-06-2025 Note Date & Type Note Facility 05-06-2025 Note [facility] Medical Records Department [address] [place] [address] History Physical Exam 05/06/25 1724 MR#: [id number] Acct: [id number] Name: JEMAL HERNANDEZ Jr. Rep #: [id number] : 1965 59 From: Jakob Morrissey MD PCP: Dr. Hernandez Dupree, DO [place] [facility] [place] [facility] History and Physical Date of Admission: 05/10/25 Pleasant 59-year-old man with no previous cardiac history who presents for an initial evaluation. He was seen in his primary physician's office and was noted to have swelling in his lower e xtremities after he had been noted on an [...] and a heart rate of 123 bpm. [facility] Medical History Atrial fibrillation Atrial flutter COPD (chronic obstructive pulmonary disease) Essential (primary) hypertension Obesity Syncope Varicose veins of both lower extremities with complications Venous insufficiency Surgical History Hx of appendectomy Family History Other Cancer Heart disease Hypertension Myocardial infarction Social History Smoking Status: Former smoker alcohol intake: current Const Const: Negative for fatigue, weakness, headache(s), [...] or weakness Endo Endo: Negative for fatigue Physical exam: General HEENT: Head normocephalic, PERRLA, hearing normal, nares normal, oropharynx moist mucous membranes. Respiratory: Normal breath sounds bilateral. Cardiac: Irregularly irregular, no murmurs no gallops no rubs GI: Soft nontender bowel sounds present Neuro: Cranial nerves II through XII intact. (1) Atrial flutter: Status: Acute Plan: He [...] his they understand and agree to proceed. 05/07/25 0733 Cosigner Signature (if applicable): 05/06/25 1728 PA> CC: Dr. Jakob Morrissey MD; Dr. Hernandez Dupree DO; SHASHI Duncan Signed [facility] Clinical Note 05-06-2025 Note Date & Type Note Facility 05-06-2025 Note [facility] Medical Records Department [address] [place] [address] History Physical Exam 05/06/25 1109 MR#: [id number] Acct: [id number] Name: JEMAL HERNANDEZ JrBarbra Rep #: [id number] : 1965 59 From: Jakob Morrissey MD PCP: Dr. Hernandez Dupree DO [place] [facility] [place] [facility] History and Physical Date of Admission: 05/10/25 Pleasant 59-year-old man with no previous cardiac history who presents for a cardioversion. He was seen in his primary physician's [...] 1 dose. His physical exam today is unremarkable. Intake Vital Signs: See EMR Intake Visit Reasons: DCCV Market Survey Representative Required: No Accompanied by: Significant Other Is patient in pain?: No Allergies No Known Allergies Allergy (Verified 04/07/25 13:13) Medications: See EMR Have you fallen in the past year?: [...] Negative for fatigue Supplemental Info Supplemental Information Echocardiogram from 04/17/2025: Interpretation Summary Mildly dilated left ventricle. Moderate concentric left ventricular hypertrophy. The left ventricular ejection fraction is 35 %. Stage 2 diastolic dysfunction. Assessment and Plan Assessment and Plan (1) Atrial flutter: Status: Acute Plan: He does have atrial flutter with a variable block. His metoprolol was increased at last office visit. He is currently on Xarelto 20 mg p.o. daily. He proceeded with an echocardiogram on 04/17/2025 that showed LV function 35%, stage II diastolic dysfunction, moderately enlarged left atrium, and mildly enlarged right atrium. He will proceed with cardioversion. 05/07/25 0733 Cosigner Signature (if applicable): 05/06/25 1113 CC: MIGUE Hutchinson; Dr. Jakob Morrissey MD; Dr. Hernandez Dupree DO Signed [facility] Evaluation note 04-07-2025 Note Date & Type Note Facility 04-07-2025 Evaluation note Diagnosis Onset Date Resolution Atrial flutter acute April 07, 2025 1:07pm [facility] [facility] Work Phone: Progress note 04-07-2025 Note Date & Type Note Facility 04-07-2025 Progress note [facility] Evaluation note Note Date & Type Note Facility Evaluation note Diagnosis Onset Date Resolution Atrial flutter acute April 07, 2025 1:07pm [facility] Work Phone: Progress note Note Date & Type Note Facility Progress note Note Date/Time April 07, 2025 1:49pm [facility] [address] [place], [place] [address]. [address] [place], [place] [id number] OFFICE VISIT Date of Service: 04/07/25 MR#: [id number] Acct: [id number] Name: JEMAL HERNANDEZ Rep #: [id number] : 1965 Provider: Dr. Jerry Morrissey MD Age/Sex: 59/M Location: [facility] [place] Status: Signed HPI HPI History of Present [...] Monitor Intake Visit Reasons: NEW ONSET AFIB (JOON) Market Survey Representative Required: No Accompanied by: Significant Other Is [...] mg PO QAM 03/22/25 04/07/25 History glucosamine [id number] 3 tab PO QDAY 03/22/25 History curtis [...] signed by Jakob Graves> Date _ Jakob Morrissey MD [place] Signature: Date (if applicable) CC: Dr. Hernandez Dupree, DO ~ [facility] Work Phone: Reason for referral (narrative) Note Date & Type Note Facility Reason for referral (narrative) No reason for referral information available [facility] Work Phone: Chief Complaint and Reason for Visit Chief Complaint Admit Date NEW ONSET AFIB (JOON) April 07, 2025 1:07pm atrial flutter April 17, 2025 9:43 am Reason for Visit Admit Date Atrial flutter April 07, 2025 1:07p m Chief Complaint Admit Date NEW ONSET AFIB (JOON) April 07, 2025 1:07pm Chief Complaint Admit Date NEW ONSET AFIB (JOON) April 07, 2025 1:07pm atrial flutter April 17, 2025 9:43 am EORDER April 26, 2025 10:2 8am Atrial fibrillation May 06, 2025 11: 09am Family History No Family History Records Found [...] April 07, 2025 End: April 07, 2025 Team Status: Inactive Member Role/Relationship Status Dates Dr. Hernandez Dupree DO Primary Care Provider Active Start: April 17, 2025 End: April 17, 2025 Dr. Jakob Morrissey MD Attending Provider Active S tart: April 17, 2025 End: April 17, 2025 Dr. Jakob Morrissey MD Referring Provider Active S tart: April 17, 2025 End: April 17, 2025 Team Status: Active Member Role/Relationship Status Dates Dr. Hernandez Dupree DO Primary Care Provider Active Start: April 17, 2025 Dr. Jakob Morrissey MD Attending Provider Active S tart: April 17, 2025 Team Status: Inactive Member Role/Relationship Status Dates Dr. Hernandez Durpee DO Primary Care Provider Active Start: April 26, 2025 End: April 26, 2025 Dr. Jakob Morrissey MD Attending Provider Active S tart: April 26, 2025 End: April 26, 2025 Dr. Jakob Morrissey MD Referring Provider Active S tart: April 26, 2025 End: April 26, 2025 Team Status: Active Member Role/Relationship Status Dates Dr. Hernandez Dupree , Primary Care Provider Active Start: May 06, 2025 Dr. Jakob Morrissey MD Attending Provider Active S tart: May 06, 2025 Dr. Jakob Morrissey MD Referring Provider Active S tart: May 06, 2025 Dr. Jakob Morrissey MD Other Provider Active Start : May 06, 2025 Goals (unrecognized section and content) Goals may be documented in a n alternate sectionGoals may be documented in an alternate sectionGoals may be documented in an alternate section (unrecognized sect ion and content) No Status Records Found INFORMATION SOURCE (unrecogn ized section and content) DATE CREATED AUTHOR 05/10/2025 [facility] FOR RECORDS PERTAINING TO PATIENTS WHO ARE [...] BE BASED ON THE PRIMARY CLINICAL RECORDS. [facility]. provides no warranty or guarantee of the accuracy or completeness of information in this document.
--- OUTSIDE RECORDS SUMMARY | 2025-05-10 08:39 | XMS RPT_ITS | CCD ---
Author Organization [facility] Care Team Providers Care Hand Shaper Name Role Phone Dr. Hernandez Dupree DO Primary Care Provider [phone] Dr. Hernandez Dupree DO Attending Provider Dr. Hernandez Dupree DO Referring Provider [phone] Yuni SARABIA, Dr. Robert Attending Provider Yuni SARABIA, Dr. Robert Referring Provider Yuni SARABIA, Dr. Robert Other Provider YuniAndreaPalmer Attending Unavailable Yuni, Jakob Referring Unavailable Joon, Hernandez Primary Care Unavailable Yuni, Jakob Attending Unavailable Joon, Hernandez Primary Care Unavailable Yuni, Jakob Referring Unavailable JoonHernandez harris Attending Unavailable Joon, Hernandez Referring Unavailable Joon, Hernandez Primary Care Unavailable Yuni, Palmer Attending Unavailable Yuni, Jakob Referring Unavailable Joon, Hernandez Primary Care Unavailable Yuni, Palmer Attending Unavailable Joon, Hernandez Primary Care Unavailable Yuni, Palmer Attending Unavailable Yuni, Palmer Referring Unavailable Joon, Hernandez Primary Care Unavailable Yuni, Palmer Consulting Unavailable Yuni, Palmer Attending Unavailable Joon, Hernandez Referring Unavailable Joon, [...] PO EVERY MORNING March 22, 2025 10:12am Tsxwdukhzhq-X4-Zxhxok karla Serr (Glucosamine Daily Complex) 1,500-400-100 mg-unit-mg tablet (3 sources) Start: 03-22-2025 take 1 tablet by mouth once daily at mealtime Ygdywtoqaue-A8-Hzyvl llia Serr (Glucosamine Daily Complex) 1,500-400-100 mg-unit-mg [...] 04-26-2025 Anion gap [Moles/Vol] 12 mmol/L 02-11 [facility] BUN/creatinine ratioOrdered By: Jakob Morrissey on 04-26-2025 Urea nitrogen/Creatinine [Mass ratio] 14.3 mg/mg 07-19 [facility] Basic Metabolic Profile (BMP )on 04-26-2025 BUN/CRE 14.3 RATIO Normal 07-19 [facility] Comment on above: Performed By: #### L 500.2500 ####[facility] [address] [place], [address] Calcium [Mass/Vol] 9.5 mg/dL Normal 7.6-11.0 [facility] Comment on above: Performed By: #### L 500.2500 ####[facility] [address] [place], [address] Chloride [Moles/Vol] 103 mmol/L Normal 98-108 [facility] Comment on above: Performed By: #### L 500.2500 ####[facility] [address] [place], [address] CO2 [Moles/Vol] 25.1 mmol/L Normal 21.0-32.0 [facility] Comment on above: Performed By: #### L 500.2500 ####[facility] [address] [place], [address] Creatinine [Mass/Vol] 1.03 mg/dL Normal 0.70-1.20 [facility] Comment on above: Performed By: #### L 500.2500 ####[facility] [address] [place], [address] GAP 12 Normal 5-15 [facility] Comment on above: Performed By: #### L 500.2500 ####[facility] [address] [place], [address] GFR/1.73 sq M.predicted among non-blacks MDRD (S/P/Bld) [Vol rate/Area] 84 mL/min/{1.73_m2} Normal >60 [facility] Comment on above: Result Comment: mL/m in/1.73m2 CKD-EPI Creatinine Equation (2020) Performed By: #### L 500.2500 ####[facility] [address] [place], [address] Glucose [Mass/Vol] 100 mg/dL High 70-99 [facility] Comment on above: Performed By: #### L 500.2500 ####[facility] [address] [place], [address] Potassium [Moles/Vol] 4.6 mmol/L Normal 3.3-5.1 [facility] Comment on above: Performed By: #### L 500.2500 ####[facility] [address] [place], [place], [address] Sodium [Moles/Vol] 140 mmol/L Normal 133-145 [facility] Comment on above: Performed By: #### L 500.2500 ####[facility] [address] [place], [place], [address] Urea nitrogen [Mass/Vol] 15 mg/dL Normal 4-19 [facility] Comment on above: Performed By: #### L 500.2500 ####[facility] [address] [place], [address] Carbon dioxide, total [Moles /volume] in Central venous bloodOrdered By: Jakobmat Morrissey on 04-26-2025 CO2 [Moles/Vol] 25.1 mmol/L 21.0-32.0 [facility] Chloride assayOrdered By: Cy ril Yuni on 04-26-2025 Chloride [Moles/Vol] 103 mmol/L 98-108 [facility] Glomerular filtration rate ( GFR) estimation/1.73 sq m using serum, plasma, or whole bOrdered By: Jakob Yuni on 04-26-2025 GFR/1.73 sq M.predicted among non-blacks MDRD (S/P/Bld) [Vol rate/Area] 84 mL/min/{1.73_m2} >60 [facility] Comment on above: mL/min/1.73m2 CKD-EP I Creatinine Equation (2020) Potassium measurement (mass/ volume)Ordered By: Jakob Yuni on 04-26-2025 Potassium (Unsp spec) [Mass/Vol] 4.6 mmol/L 3.3-5.1 [facility] Serum creatinine measurement (mass/volume)Ordered By: Jakob Yuni on 04-26-2025 Creatinine [Mass/Vol] 1.03 mg/dL 0.70-1.20 [facility] Serum glucose measurement (m ass/volume)Ordered By: Palmer Yuni on 04-26-2025 Glucose [Mass/Vol] 100 mg/dL High 70-99 [facility] Serum or plasma calcium atul urement (mass/volume)Ordered By: Jakob Morrissey on 04-26-2025 Calcium [Mass/Vol] 9.5 mg/dL 7.6-11.0 [facility] Serum or plasma urea nitroge n measurement (mass/volume)Ordered By: Jakob Morrissey on 04-26-2025 Urea nitrogen [Mass/Vol] 15 mg/dL 4-19 [facility] Sodium levelOrdered By: Jerry Morrissey on 04-26-2025 Sodium [Moles/Vol] 140 mmol/L 133-145 [facility] Echocardiogram study reportO rdered By: Jakob Morrissey on 04-20-2025 Study report [facility] [address] [place] [address] Echo Complete W/ Contrast 04/17/25 0955 MR#: [id number] Acct: [id number] Name: DAVIDJEMAL Jr. Rep #:[id number] : 1965 59 From: Jakob Graves Attending Dr: Dr. 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 [address] Echo Complete W/ Contrast 04/17/25954 MR#: [id number] Acct: [id number] Name: JEMAL HERNANDEZ Jr. Rep #: [id number] : 1965 59 From: Jakob Morrissey MD Attending Dr: Dr. Jakob Morrissey MD Status: [facility] Ordering Dr: Jakob Morrissey MD Date: 04/17/25 Location: [facility] Sex: M C Admitted: [...] DO Date Dictated: 04/17/25954 Date Transcribed: 04/20/251731 [employer] Teacher: Signed Normal [facility] Cardiology Visit Reporton Cardiology Visit Report [facility] [address] [place] [address] OFFICE VISIT Date of Service: 04/07/25 MR#: [id number] Acct: [id number] Name: JEMAL HERNANDEZ Jr. Rep #: [id number] : 1965 Provider: Dr. 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 Normal [facility] Absolute lymphocyte countOrd ered By: Hernandez Dupree on 02-16-2025 Lymphocytes Auto (Unsp spec) [#/Vol] 2.38 10*3/uL 0.83-4.51 [facility] Absolute neutrophil countOrd ered By: Hernandez Dupree on 02-16-2025 Neutrophils (Bld) [#/Vol] 6.0 10*3/uL 2.0-7.7 [facility] Anion gap in Serum or Plasma Ordered By: Hernandez Dupree on 02-16-2025 Anion gap [Moles/Vol] 11 mmol/L 5-15 [facility] Automated lymphocyte count a s percentage of total leukocytesOrdered By: Hernandez Dupree on 02-16-2025 Lymphocytes/100 WBC Auto (Unsp spec) 25.6 % 19- [facility] BUN/creatinine ratioOrdered By: Hernandez Dupree on 02-16-2025 Urea nitrogen/Creatinine [Mass ratio] 16.0 mg/mg - [facility] Basophil percentageOrdered B y: Hernandez Dupree on 02-16-2025 Basophils/100 WBC (Bld) 0.5 % 0-1 [facility] Bilirubin, totalOrdered By: Hernandez Dupree on 02-16-2025 Bilirubin [Mass/Vol] 0.68 mg/dL 0.00-1.30 [facility] CBC W/Diff, Automatedon 01-29 Absolute Lymph 2.38 X10 3/uL Normal 0.83-4.51 [facility] Comment on above: Performed By: #### L 501.9520, L501.5200, L501.9910, L100.0100, L503.7505, L500.4100, L500.4050, L501.9985 #### [facility] [address] [place], [address] Absolute Neut 6.0 X10 3/uL Normal 2.0-7.7 [facility] Comment on above: Performed By: #### L 501.9520, L501.5200, L501.9910, L100.0100, L503.7505, L500.4100, L500.4050, L501.9985 #### [facility] [address] [place], [address] Basophils/100 WBC (Bld) 0.5 % Normal 0-1 [facility] Comment on above: Performed By: #### L 501.9520, L501.5200, L501.9910, L100.0100, L503.7505, L500.4100, L500.4050, L501.9985 #### [facility] [address] [place], [address] Eosinophils/100 WBC (Bld) 1.0 % Normal 0-5 [facility] Comment on above: Performed By: #### L 501.9520, L501.5200, L501.9910, L100.0100, L503.7505, L500.4100, L500.4050, L501.9985 #### [facility] [address] [place], [address] Erythrocyte distribution width (RBC) [Ratio] 13.4 % Normal 11.6-14.6 [facility] Comment on above: Performed By: #### L 501.9520, L501.5200, L501.9910, L100.0100, L503.7505, L500.4100, L500.4050, L501.9985 #### [facility] [address] [place], [address] Hematocrit (Bld) [Volume fraction] 50.5 % Normal 40-54 [facility] Comment on above: Performed By: #### L 501.9520, L501.5200, L501.9910, L100.0100, L503.7505, L500.4100, L500.4050, L501.9985 #### [facility] [address] [place], [address] Hemoglobin (Bld) [Mass/Vol] 16.6 g/dL High 13.0-16.5 [facility] Comment on above: Performed By: #### L 501.9520, L501.5200, L501.9910, L100.0100, L503.7505, L500.4100, L500.4050, L501.9985 #### [facility] [address] [place], [address] IG% 0.500 Normal 0.0-0.9 [facility] Comment on above: Result Comment: IG% - Immature Granulocytes (promyelocytes, myelocytes and metamyelocytes) > 1% indicates that a LEFT SHIFT is Present. Performed By: #### L 501.9520, L501.5200, L501.9910, L100.0100, L503.7505, L500.4100, L500.4050, L501.9985 #### [facility] [address] [place], [address] Lymphocytes/100 WBC (Bld) 25.6 % Normal 19-41 [facility] Comment on above: Performed By: #### L 501.9520, L501.5200, L501.9910, L100.0100, L503.7505, L500.4100, L500.4050, L501.9985 #### [facility] [address] [place], [address] MCH (RBC) [Entitic mass] 31.5 pg Normal 27.0-32.0 [facility] Comment on above: Performed By: #### L 501.9520, L501.5200, L501.9910, L100.0100, L503.7505, L500.4100, L500.4050, L501.9985 #### [facility] [address] [place], [address] MCHC (RBC) [Mass/Vol] 32.9 g/dL Normal 32-36 [facility] Comment on above: Performed By: #### L 501.9520, L501.5200, L501.9910, L100.0100, L503.7505, L500.4100, L500.4050, L501.9985 #### [facility] [address] [facility] [place], [address] MCV (RBC) [Entitic vol] 95.8 fL High 80-94 [facility] Comment on above: Performed By: #### L 501.9520, L501.5200, L501.9910, L100.0100, L503.7505, L500.4100, L500.4050, L501.9985 #### [facility] [address] [facility] [place], [address] Monocytes/100 WBC (Bld) 8.0 % Normal 0-10 [facility] Comment on above: Performed By: #### L 501.9520, L501.5200, L501.9910, L100.0100, L503.7505, L500.4100, L500.4050, L501.9985 #### [facility] [address] [place], [address] Neutrophils/100 WBC (Bld) 64.4 % Normal 47-70 [facility] Comment on above: Performed By: #### L 501.9520, L501.5200, L501.9910, L100.0100, L503.7505, L500.4100, L500.4050, L501.9985 #### [facility] [address] [place], [address] Nucleated RBC (Bld) [#/Vol] 0 10*3/uL Normal 0-5 [facility] Comment on above: Performed By: #### L 501.9520, L501.5200, L501.9910, L100.0100, L503.7505, L500.4100, L500.4050, L501.9985 #### [facility] [address] [place], [address] Platelet mean volume (Bld) [Entitic vol] 10.6 fL Normal 6.2-12.0 [facility] Comment on above: Performed By: #### L 501.9520, L501.5200, L501.9910, L100.0100, L503.7505, L500.4100, L500.4050, L501.9985 #### [facility] [address] [place], [address] Platelets (Bld) [#/Vol] 205 10*3/uL Normal 150-450 [facility] Comment on above: Performed By: #### L 501.9520, L501.5200, L501.9910, L100.0100, L503.7505, L500.4100, L500.4050, L501.9985 #### [facility] [address] [place], [address] RBC (Bld) [#/Vol] 5.27 10*6/uL Normal 4.6-6.2 [facility] Comment on above: Performed By: #### L 501.9520, L501.5200, L501.9910, L100.0100, L503.7505, L500.4100, L500.4050, L501.9985 #### [facility] [address] [place], [address] RDW SD 47.7 fl High 35.1-43.9 [facility] Comment on above: Performed By: #### L 501.9520, L501.5200, L501.9910, L100.0100, L503.7505, L500.4100, L500.4050, L501.9985 #### [facility] [address] [place], [address] WBC (Bld) [#/Vol] 9.3 10*3/uL Normal 4.4-11.0 [facility] Comment on above: Performed By: #### L 501.9520, L501.5200, L501.9910, L100.0100, L503.7505, L500.4100, L500.4050, L501.9985 #### [facility] [address] [facility] [address] [place], [place], [id number] Calculated very low density lipoprotein (VLDL) cholesterol measurementOrdered By: Hernandez Dupree on 02-16-2025 Calculated very low density lipoprotein (VLDL) cholesterol measurement 26 mg/dL 5-40 [facility] Carbon dioxide, total [Moles /volume] in Central venous bloodOrdered By: Hernandez Dupree on 02-16-2025 CO2 [Moles/Vol] 24.4 mmol/L 21.0-32.0 [facility] Chloride assayOrdered By: Cassius Dupree on 02-16-2025 Chloride [Moles/Vol] 105 mmol/L 98-108 [facility] Comprehensive Metabolic Prof ilon 02-16-2025 Albumin [Mass/Vol] 4.2 g/dL Normal 3.5-5.0 [facility] Comment on above: Performed By: #### L 501.9520, L501.5200, L501.9910, L100.0100, L503.7505, L500.4100, L500.4050, L501.9985 #### [facility] [address] [place], [address] Albumin/Globulin [Mass ratio] 1.4 {ratio} Normal 0.9-2.4 [facility] Comment on above: Performed By: #### L 501.9520, L501.5200, L501.9910, L100.0100, L503.7505, L500.4100, L500.4050, L501.9985 #### [facility] [address] [place], [address] ALK PHOS 99 U/L Normal 40-129 [facility] Comment on above: Performed By: #### L 501.9520, L501.5200, L501.9910, L100.0100, L503.7505, L500.4100, L500.4050, L501.9985 #### [facility] [address] [place], [place], [phone] (728) ALT [Catalytic activity/Vol] 28 U/L Normal <=46 [facility] Comment on above: Performed By: #### L 501.9520, L501.5200, L501.9910, L100.0100, L503.7505, L500.4100, L500.4050, L501.9985 #### [facility] [address] [place], [address] AST [Catalytic activity/Vol] 25 U/L Normal <=37 [facility] Comment on above: Performed By: #### L 501.9520, L501.5200, L501.9910, L100.0100, L503.7505, L500.4100, L500.4050, L501.9985 #### [facility] [address] [place], [address] Bilirubin [Mass/Vol] 0.68 mg/dL Normal 0.00-1.30 [facility] Comment on above: Performed By: #### L 501.9520, L501.5200, L501.9910, L100.0100, L503.7505, L500.4100, L500.4050, L501.9985 #### [facility] [address] [place], [address] BUN/CRE 16.0 RATIO Normal 10-20 [facility] Comment on above: Performed By: #### L 501.9520, L501.5200, L501.9910, L100.0100, L503.7505, L500.4100, L500.4050, L501.9985 #### [facility] [address] [place], [address] Calcium [Mass/Vol] 9.8 mg/dL Normal 7.6-11.0 [facility] Comment on above: Performed By: #### L 501.9520, L501.5200, L501.9910, L100.0100, L503.7505, L500.4100, L500.4050, L501.9985 #### [facility] [address] [place], [address] Chloride [Moles/Vol] 105 mmol/L Normal 98-108 [facility] Comment on above: Performed By: #### L 501.9520, L501.5200, L501.9910, L100.0100, L503.7505, L500.4100, L500.4050, L501.9985 #### [facility] [address] [place], [address] CO2 [Moles/Vol] 24.4 mmol/L Normal 21.0-32.0 [facility] Comment on above: Performed By: #### L 501.9520, L501.5200, L501.9910, L100.0100, L503.7505, L500.4100, L500.4050, L501.9985 #### [facility] [address] [place], [address] Creatinine [Mass/Vol] 0.88 mg/dL Normal 0.70-1.20 [facility] Comment on above: Performed By: #### L 501.9520, L501.5200, L501.9910, L100.0100, L503.7505, L500.4100, L500.4050, L501.9985 #### [facility] [address] [place], [address] GAP 11 Normal 5-15 [facility] Comment on above: Performed By: #### L 501.9520, L501.5200, L501.9910, L100.0100, L503.7505, L500.4100, L500.4050, L501.9985 #### [facility] [address] [place], [place], [id number] ([address] GFR/1.73 sq M.predicted among non-blacks MDRD (S/P/Bld) [Vol rate/Area] 100 mL/min/{1.73_m2} Normal >60 [facility] Comment on above: Result Comment: mL/m in/1.73m2 CKD-EPI Creatinine Equation (2020) Performed By: #### L 501.9520, L501.5200, L501.9910, L100.0100, L503.7505, L500.4100, L500.4050, L501.9985 #### [facility] [address] [place], [place], [phone] (910) Globulin (S) [Mass/Vol] 3.0 g/dL Normal 2.2-4.2 [facility] Comment on above: Performed By: #### L 501.9520, L501.5200, L501.9910, L100.0100, L503.7505, L500.4100, L500.4050, L501.9985 #### [facility] [address] [place], [place], [phone] (497) Glucose [Mass/Vol] 85 mg/dL Normal 70-99 [facility] Comment on above: Performed By: #### L 501.9520, L501.5200, L501.9910, L100.0100, L503.7505, L500.4100, L500.4050, L501.9985 #### [facility] [address] [place], [address] Potassium [Moles/Vol] 4.4 mmol/L Normal 3.3-5.1 [facility] Comment on above: Performed By: #### L 501.9520, L501.5200, L501.9910, L100.0100, L503.7505, L500.4100, L500.4050, L501.9985 #### [facility] [address] [place], [address] Sodium [Moles/Vol] 141 mmol/L Normal 133-145 [facility] Comment on above: Performed By: #### L 501.9520, L501.5200, L501.9910, L100.0100, L503.7505, L500.4100, L500.4050, L501.9985 #### [facility] [address] [place], [address] T PROT 7.2 g/dL Normal 5.9-8.4 [facility] Comment on above: Performed By: #### L 501.9520, L501.5200, L501.9910, L100.0100, L503.7505, L500.4100, L500.4050, L501.9985 #### [facility] [address] [place], [address] Urea nitrogen [Mass/Vol] 14 mg/dL Normal 4-19 [facility] Comment on above: Performed By: #### L 501.9520, L501.5200, L501.9910, L100.0100, L503.7505, L500.4100, L500.4050, L501.9985 #### [facility] [address] [place], [address] Eosinophil percentageOrdered By: Hernandez Dupree on 02-16-2025 Eosinophils/100 WBC (Bld) 1.0 % 0-5 [facility] Erythrocyte distribution wid th ratioOrdered By: Hernandez Dupree on 02-16-2025 Erythrocyte distribution width (RBC) [Ratio] 13.4 % 11.6-14.6 [facility] Erythrocyte distribution wid th standard deviationOrdered By: Hernandez Dupere on 02-16-2025 Erythrocyte distribution width (RBC) [Ratio] 47.7 fl High 35.1-43.9 [facility] Glomerular filtration rate ( GFR) estimation/1.73 sq m using serum, plasma, or whole bOrdered By: Hernandez Dupere on 02-16-2025 GFR/1.73 sq M.predicted among non-blacks MDRD (S/P/Bld) [Vol rate/Area] 100 mL/min/{1.73_m2} >60 [facility] Comment on above: mL/min/1.73m2 CKD-EP I Creatinine Equation (2020) Hematocrit Auto (Bld) [Volum e fraction]Ordered By: Hernandez Dupree on 02-16-2025 Hematocrit (Bld) [Volume fraction] 50.5 % 40-54 [facility] Hemoglobin A1con 02-16-2025 HbA1c (Bld) [Mass fraction] 5.9 % High <=5.6 [facility] Comment on above: Result Comment: Norm al < 5.7 % Prediabetic 5.7 - 6.4 % Diabetic >or= 6.5 % Please note range changes. Performed By: #### L 501.9520, L501.5200, L501.9910, L100.0100, L503.7505, L500.4100, L500.4050, L501.9985 #### [facility] [address] [place], [address] Hemoglobin A1c percentageOrd ered By: Hernandez Dupree on 02-16-2025 HbA1c (Bld) [Mass fraction] 5.9 % High <5.7 [facility] Comment on above: Normal < 5.7 % Predi abetic 5.7 - 6.4 % Diabetic >or= 6.5 % Please note range changes. Hemoglobin measurementOrdere d By: Hernandez Dupree on 02-16-2025 Hemoglobin (Bld) [Mass/Vol] 16.6 g/dL High 13.0-16.5 [facility] Immature granulocytes/100 WB C Auto (Bld)Ordered By: Hernandez Dupree on 02-16-2025 Immature granulocytes/100 WBC (Bld) 0.500 % 0.0-0.9 [facility] Comment on above: IG% - Immature Granu locytes (promyelocytes, myelocytes and metamyelocytes) > 1% indicates that a LEFT SHIFT is Present. L503.7505on 02-16-2025 Natriuretic peptide B (Bld) [Mass/Vol] 769 pg/mL Normal <=900 [facility] Comment on above: Result Comment: Hear t Failure Unlikely: < 300 pg/mL Heart Failure Likely < 50 Years: > 450 pg/mL 50-75 Years: > 900 pg/mL >75 Years: > 1800 pg/mL Performed By: #### L 501.9520, L501.5200, L501.9910, L100.0100, L503.7505, L500.4100, L500.4050, L501.9985 ####[facility] [address] [place], [address] LDL calc ser/plasOrdered By: Hernandez Dupree on 02-16-2025 Cholesterol in LDL [Mass/Vol] 135 mg/dL [facility] Comment on above: Jgjfjgtrlj=683-771 m g/dL & Higher Qbrv=113 mg/dL or greater Laboratory - Chemistry and C hemistry - challengeOrdered By: Hernandez Dupree on 02-16-2025 AST [Catalytic activity/Vol] 25 U/L <38 [facility] Lipid Profileon 02-16-2025 CHOL:HDL 5.99 Normal [facility] Comment on above: Performed By: #### L 501.9520, L501.5200, L501.9910, L100.0100, L503.7505, L500.4100, L500.4050, L501.9985 #### [facility] [address] [place], [address] Cholesterol [Mass/Vol] 193 mg/dL Normal <=200 [facility] Comment on above: Result Comment: Chol esterol level, Desirable <200 mg/dL Borderline high cholesterol 200-239 mg/dL High cholesterol >=240 mg/dL Recommendations of the NCEP Adult Treatment Panel for the following risk-cutoff thresholds for the [place] population. Performed By: #### L 501.9520, L501.5200, L501.9910, L100.0100, L503.7505, L500.4100, L500.4050, L501.9985 #### [facility] [address] [place], [address] Cholesterol in HDL [Mass/Vol] 32 mg/dL Low [facility] Comment on above: Result Comment: Lashay onal Cholesterol Education Program (NCEP) guidelines: <40 mg/dL: Low HDL-cholesterol (major risk factor for CHD) >= 60 mg/dL: High HDL-cholesterol (negative risk factor for CHD) HDL-cholesterol is affected by a number of factors, e.g. smoking, exercise, hormones, sex and age. Performed By: #### L 501.9520, L501.5200, L501.9910, L100.0100, L503.7505, L500.4100, L500.4050, L501.9985 #### [facility] [address] [place], [address] Cholesterol in LDL [Mass/Vol] 135 mg/dL Normal [facility] Comment on above: Result Comment: Bord mdleyj=363-814 mg/dL Higher Xoci=080 mg/dL or greater Performed By: #### L 501.9520, L501.5200, L501.9910, L100.0100, L503.7505, L500.4100, L500.4050, L501.9985 #### [facility] [address] [place], [place], [id number] Cholesterol in VLDL [Mass/Vol] 26 mg/dL Normal 5-40 [facility] Comment on above: Performed By: #### L 501.9520, L501.5200, L501.9910, L100.0100, L503.7505, L500.4100, L500.4050, L501.9985 #### [facility] [address] [place], [place], [id number] Triglyceride [Mass/Vol] 129 mg/dL Normal [facility] Comment on above: Result Comment: The drugs N-Acetylcysteine and Metamizole may falsely depress this assay. Normal range: <150 mg/dL Borderline High: 150-199 mg/dL High: 200-499 mg/dL Very High: >500 mg/dL Performed By: #### L 501.9520, L501.5200, L501.9910, L100.0100, L503.7505, L500.4100, L500.4050, L501.9985 #### [facility] [address] [place], [address] MCV (mean corpuscular volume ) determinationOrdered By: Hernandez Dupree on 02-16-2025 MCV (RBC) [Entitic vol] 95.8 fL High 80-94 [facility] Magnesiumon 02-16-2025 Magnesium [Mass/Vol] 2.2 mg/dL Normal 1.5-2.2 [facility] Comment on above: Performed By: #### L 501.9520, L501.5200, L501.9910, L100.0100, L503.7505, L500.4100, L500.4050, L501.9985 #### [facility] [address] [place], [place], [id number] Magnesium measurement (mass/ volume)Ordered By: Hernandez Dupree on 02-16-2025 Magnesium (Unsp spec) [Mass/Vol] 2.2 mg/dL 1.5-2.2 [facility] Mean corpuscular hemoglobin (MCH) determinationOrdered By: Hernandez Dupree on 02-16-2025 MCH (RBC) [Entitic mass] 31.5 pg 27.0-32.0 [facility] Mean corpuscular hemoglobin concentration (MCHC) determinationOrdered By: Hernandez Dupree on 02-16-2025 MCHC (RBC) [Mass/Vol] 32.9 g/dL 32-36 [facility] Mean platelet volume determi nationOrdered By: Hernandez Dupree on 02-16-2025 Platelet mean volume (Bld) [Entitic vol] 10.6 fL 6.2-12.0 [facility] Monocyte percentageOrdered B y: Hernandez Dupree on 02-16-2025 Monocytes/100 WBC (Bld) 8.0 % 0-10 [facility] Natriuretic peptide.B prohor araceli N-Terminal [Mass/volume] in Serum or PlasmaOrdered By: Hernandez Dupree on 02-16-2025 Natriuretic peptide.B prohormone N-Terminal [Mass/Vol] 769 pg/mL <900 [facility] Comment on above: Heart Failure Unlike ly: < 300 pg/mLHeart Failure Likely< 50 Years: > 450 pg/mL50-75 Years: > 900 pg/mL>75 Years: > 1800 pg/mL Neutrophil percentageOrdered By: Hernandez Dupree on 02-16-2025 Neutrophils/100 WBC (Bld) 64.4 % 47-70 [facility] Nucleated red blood cell per centageOrdered By: Hernandez Dupree on 02-16-2025 Nucleated RBC/100 WBC (Bld) [Ratio] 0 % 0-5 [facility] PSA,Total - Annual Screenon 02-16-2025 PSA,TOT SCREEN 0.80 ng/mL Normal 0.02-4.00 [facility] Comment on above: Result Comment: This [...] L501.9910, L100.0100, L503.7505, L500.4100, L500.4050, L501.9985 #### [facility] [place], [address] Platelet countOrdered By: Cassius Dupree on 02-16-2025 Platelets (Bld) [#/Vol] 205 10*3/uL 150-450 [facility] Potassium measurement (mass/ volume)Ordered By: Hernandez Dupree on 02-16-2025 Potassium (Unsp spec) [Mass/Vol] 4.4 mmol/L 3.3-5.1 [facility] RBC Auto (Bld) [#/Vol]Ordere d By: Hernandez Dupree on 02-16-2025 RBC (Bld) [#/Vol] 5.27 10*6/uL 4.6-6.2 [facility] Screening total cholesterol/ high density lipoprotein (HDL) cholesterol ratioOrdered By: Hernandez Dupree on 02-16-2025 Cholesterol.total/Choles terol in HDL [Mass ratio] 5.99 {ratio} [facility] Serum creatinine measurement (mass/volume)Ordered By: Hernandez Dupree on 02-16-2025 Creatinine [Mass/Vol] 0.88 mg/dL 0.70-1.20 [facility] Serum globulin measurementOr dered By: Hernandez Dupree on 02-16-2025 Globulin (S) [Mass/Vol] 3.0 g/dL 2.2-4.2 [facility] Serum glucose measurement (m ass/volume)Ordered By: Hernandez Dupree on 02-16-2025 Glucose [Mass/Vol] 85 mg/dL 70-99 [facility] Serum or plasma alanine nelson otransferase (ALT) measurementOrdered By: Hernandez Dupree on 02-16-2025 ALT [Catalytic activity/Vol] 28 U/L <47 [facility] Serum or plasma albumin atul urement (mass/volume)Ordered By: Hernandez Dupree on 02-16-2025 Albumin [Mass/Vol] 4.2 g/dL 3.5-5.0 [facility] Serum or plasma albumin/glob ulin mass ratioOrdered By: Hernandez Dupree on 02-16-2025 Albumin/Globulin [Mass ratio] 1.4 {ratio} 0.9-2.4 [facility] Serum or plasma alkaline lópez sphatase measurementOrdered By: Hernandez Dupree on 02-16-2025 ALP [Catalytic activity/Vol] 99 U/L 40-129 [facility] Serum or plasma calcium atul urement (mass/volume)Ordered By: Hernandez Dupree on 02-16-2025 Calcium [Mass/Vol] 9.8 mg/dL 7.6-11.0 [facility] Serum or plasma cholesterol in HDL measurement (mass/volume)Ordered By: Hernandez Dupree on 02-16-2025 Cholesterol in HDL [Mass/Vol] 32 mg/dL Low >40 [facility] Comment on above: National Cholesterol Education Program (NCEP) guidelines:<40 mg/dL: Low HDL-cholesterol (major risk factor for CHD)>= 60 mg/dL: High HDL-cholesterol (negative risk factor for CHD)HDL-cholesterol is affected by a number of factors, e.g. smoking, exercise, hormones, sex and age. Serum or plasma cholesterol measurement (mass/volume)Ordered By: Hernandez Dupree on 02-16-2025 Cholesterol [Mass/Vol] 193 mg/dL <201 [facility] Comment on above: Cholesterol level, D esirable <200 mg/dLBorderline high cholesterol 200-239 mg/dLHigh cholesterol >=240 mg/dLRecommendations of the NCEP Adult Treatment Panel for the following risk-cutoff thresholds for the [place] population. Serum or plasma urea nitroge n measurement (mass/volume)Ordered By: Hernandez Dupree on 02-16-2025 Urea nitrogen [Mass/Vol] 14 mg/dL 4-19 [facility] Sodium levelOrdered By: Hernandez Dupree on 02-16-2025 Sodium [Moles/Vol] 141 mmol/L 133-145 [facility] TSH DL <= 0.005 mIU/L QnOrde red By: Hernandez Dupree on 02-16-2025 TSH Qn 1.640 uIU/mL 0.300-4.200 [facility] Thyroid Stim Hormone (TSH)on 02-16-2025 TSH 1.640 uIU/mL Normal 0.300-4.200 [facility] Comment on above: Performed By: #### L 501.9520, L501.5200, L501.9910, L100.0100, L503.7505, L500.4100, L500.4050, L501.9985 #### [facility] [place], [address] Total proteinOrdered By: Helen Dupree on 02-16-2025 Protein [Mass/Vol] 7.2 g/dL 5.9-8.4 [facility] Triglycerides measurementOrd ered By: Hernandez Dupree on 02-16-2025 Triglyceride [Mass/Vol] 129 mg/dL <199 [facility] Comment on above: The drugs N-Acetylcy steine and Metamizole may falsely depress this assay. Normal range: <150 mg/dLBorderline High: 150-199 mg/dLHigh: 200-499 mg/dLVery High: >500 mg/dL White blood cell (WBC) count Ordered By: Hernandez Dupree on 02-16-2025 WBC (Bld) [#/Vol] 9.3 10*3/uL 4.4-11.0 [facility] Vital Signs Date Time Vital Sign Value Performing Clinician Charlie lassiter 04-07-2025 13:09-0400 Body height 177.[address] Hernandez Dupree DO Work Phone: [facility] 04-07-2025 13:09-0400 Body mass index (BMI) [Ratio] 44 kg/m2 Dr. Hernandez Dupree DO Work Phone: [facility] 04-07-2025 13:09-0400 Body weight 139.[address] Hernandez Dupree DO Work Phone: [facility] 04-07-2025 13:09-0400 Diastolic blood pressure 78 mm[Hg] Dr. Hernandez Dupree DO Work Phone: [facility] 04-07-2025 13:09-0400 Heart rate 122 /min Dr. Hernandez Dupree DO Work Phone: [facility] 04-07-2025 13:09-0400 Respiratory rate 16 /min Dr. Hernandez Dupree DO Work Phone: [facility] 04-07-2025 13:09-0400 Systolic blood pressure 132 mm[Hg] Dr. Hrenandez Dupree DO Work Phone: [facility] Encounters Encounter Date Encounter Type Care Provider Facility Start: 05-10-2025 ambulatory Jakob Morrissey Facility:[facility] Start: 05-06-2025 ambulatory Jakob Morrissey Facility:[facility] Start: 05-06-2025 Non-patient / Non-visit Dr. Jaylen [facility] Start: 04-26-2025 End: 04-26-[address] Hernandez Dupree DO Work Phone: -[facility] [place] Start: 04-26-2025 End: 04-26-[address] Jakob Morrissey MD -[facility] Work Phone: Start: 04-26-2025 End: 04-26-2025 ambulatory Jakob Morrissey Facility:[facility] Start: 04-17-2025 Non-patient / Non-visit Dr. Jaylen [facility] Start: 04-17-2025 End: 04-17-[address] Hernandez Dupree DO Work Phone: -[facility] Start: 04-17-2025 End: 04-17-[address] Jakob Morrissey MD -[facility] Work Phone: Start: 04-17-2025 End: 04-17-2025 ambulatory Jakob Morrissey Facility:[facility] Start: 04-07-2025 End: 04-07-[address] Jakob Morrissey MD -[facility] Work Phone: Start: 04-07-2025 End: 04-07-[address] Hernandez Dupree DO Work Phone: -[facility] Start: 02-16-2025 End: 02-16-[address] Hernandez Dupree DO -[facility] [place] Work Phone: Start: 02-16-2025 End: 02-16-2025 ambulatory Hernandez Dupree Facility:[facility] Procedures Date Procedure Procedure Detail Performing [...] 04-07-2025 Evaluation of diagno stic study results [facility] Basic metabolic 2008 panel with ionized calcium - Serum or Plasma [facility] spital Cardioversion [facility] Payers Date Payer Category Payer Self-pay [id number] 2025 Self-pay 2025 Unknown [id number] Unknown [id number] 2.16.8 [id number] Unknown [id number] 2.16.8 [id number] Unknown [id number] 2.16.8 [id number] Unknown [id number] 2.16.8 [id number] Unknown [id number] 2.16.8 [id number] Unknown [id number] 2.16.8 [id number] Unknown [id number] 2.16.8 [id number] Social History Date Type Detail Facility Start: 03-22-2025 End: 05-07-2025 Tobacco smoking status NHIS Ex-smoker (finding) [facility] Start: 1965 Sex Assigned At Male [facility] Clinical Note 05-06-2025 Note Date & Type Note Facility 05-06-2025 Note [facility] Medical Records Department [address] [place] [address] History Physical Exam 05/06/25 1724 MR#: [id number] Acct: [id number] Name: JEMAL HERNANDEZ Jr. Rep #: [id number] : 1965 59 From: Jakob Morrissey MD PCP: Dr. Hernandez Dupree, DO [place] [facility] [place] [facility] History and Physical Date of Admission: 05/10/25 [...] and a heart rate of 123 bpm. [facility] Medical History Atrial fibrillation Atrial flutter COPD [...] Dr. Hernandez Dupree DO; SHASHI Duncan Signed [facility] Clinical Note 05-06-2025 Note Date & Type Note Facility 05-06-2025 Note [facility] Medical Records Department [address] [place] [address] History Physical Exam 05/06/25 1109 MR#: [id number] Acct: [id number] Name: JEMAL HERNANDEZ JrBarbra Rep #: [id number] : 1965 59 From: Jakob Morrissey MD PCP: Dr. 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 Jakob Morrissey MD; Dr. Hernandez Dupree DO Signed [facility] Evaluation note 04-07-2025 Note Date & Type Note Facility 04-07-2025 Evaluation note Diagnosis Onset Date Resolution Atrial flutter acute April 07, 2025 1:07pm [facility] Work Phone: Progress note 04-07-2025 Note Date & Type Note Facility 04-07-2025 Progress note [facility] Evaluation note Note Date & Type Note Facility Evaluation note Diagnosis Onset Date Resolution Atrial flutter acute April 07, 2025 1:07pm [facility] Work Phone: Progress note Note Date & Type Note Facility Progress note Note Date/Time April 07, 2025 1:49pm [facility] [address] [place], [place] [address]. [address] [place], [place] [address] OFFICE VISIT Date of Service: 04/07/25 MR#: [id number] Acct: [id number] Name: JEMAL HERNANDEZ Rep #: [id number] : 1965 Provider: Dr. Jerry Morrissey MD Age/Sex: 59/M Location: [facility] Status: Signed HPI HPI History of [...] Intake Visit Reasons: NEW ONSET AFIB (JOON) Property Portfolio Officer Required: No Accompanied by: Significant Other Is [...] mg PO QAM 03/22/25 04/07/25 History glucosamine [id number]-P1-Afksgiwsn 3 tab PO QDAY 03/22/25 History curtis [...] applicable) CC: Dr. Hernandez Dupree, DO ~ [facility] Work Phone: Reason for referral (narrative) Note Date & Type Note Facility Reason for referral (narrative) No reason for referral information available [facility] Work Phone: Chief Complaint and Reason for [...] section and content) DATE CREATED AUTHOR 05/10/2025 [facility] FOR RECORDS PERTAINING TO PATIENTS WHO [...] BE BASED ON THE PRIMARY CLINICAL RECORDS. [employer] [facility]. provides no warranty or guarantee of the accuracy or completeness of information in this document.
--- NOTE | 2025-05-10 10:08 | PCM.OP.PRO2 ---
Non-invasive Procedural Procedure Information Date of Procedure: 05/10/25 Pre-Procedure Diagnosis: Atrial fibrillation flutter Post-Procedure Diagnosis: Atrial flutter Procedure Performed:: DC cardioversion Procedure Time Out: : Procedure Start Time: : Procedure Stop Time: : Special Medications: 6 mg intravenous etomidate Description of procedure: Patient was brought to the cardiac catheterization lab in the postabsorptive nonsedated state. Informed consent was obtained. Anterior posterior pads were applied. The patient was seen by Dr. Marshall of the critical care division. 300 J of synchronized biphasic DC cardioversion energy were applied with prompt reversal to sinus rhythm. Patient tolerated the procedure well. Procedure findings: Successful cardioversion from atrial flutter to sinus rhythm. Follow-up as for office protocol. If patient reverts back into atrial flutter we will consider atrial flutter ablation. Complications Complications: No
--- NOTE | 2025-05-10 11:07 | PCM.OP.PRO2 ---
Procedures Pulmonary Pulmonary Procedures /Diagnostic Testin Con Sedation Non-invasive Procedural Procedure Information Date of Procedure: 05/10/25 Description of procedure: CONSCIOUS SEDATION REPORT DATE OF SERVICE: May 10, 2025 BRIEF HISTORY OF PRESENT ILLNESS: The patient is a 59-year-old male who presented to [facility] to undergo an elective outpatient cardioversion due to underlying atrial fibrillation. The patient does have a smoking history but recently quit completely. He has never been formally diagnosed with COPD. The patient denied any prior anesthetic complications. He has never been diagnosed with obstructive sleep apnea. The patient is systemically anticoagulated on Xarelto. His last surface echocardiogram demonstrated an ejection fraction of 35%. PHYSICAL EXAMINATION: VITAL SIGNS: Reviewed and were acceptable. GENERAL: The patient is a male, in no apparent distress, speaking in full sentences. HEENT: Normocephalic, atraumatic. Mucous membranes are moist and pink. Good mouth opening noted. Trachea is midline. Good neck mobility. CHEST: S1, S2 irregularly irregular. No murmurs, rubs or gallops were noted. LUNGS: Clear to auscultation bilaterally without appreciable wheezes, rales or rhonchi. ABDOMEN: Soft, nontender, nondistended. Positive bowel sounds. EXTREMITIES: There is no clubbing, cyanosis or edema. ASA Class: II DESCRIPTION OF PROCEDURE: After confirmation of informed consent, the patient's anesthesia plan was reviewed in detail. Etomidate was chosen. Risks and benefits were reviewed and the patient agreed to proceed. At 1004, the patient was given 6 mg of etomidate. The patient achieved an appropriate level of sedation and was given a 300 joule synchronized cardioversion by Dr. Morrissey at the bedside. This was successful in achieving normal sinus rhythm. The patient was monitored until 1017, at which time he reached his baseline mental status and function. The patient tolerated the procedure well. COMPLICATIONS: None ESTIMATED BLOOD LOSS: None RECOMMENDATIONS: Okay to recover in usual fashion.
== END 2025-05-10 11:05 | disposition home or self-care (01) ==
PROVIDERS: PCP Family Medicine; Referring Provider Internal Medicine Cardiovascular Disease; Visit Provider Internal Medicine Cardiovascular Disease
DX: I48.92 Unspecified atrial flutter (principal); J44.9 Chronic obstructive pulmonary disease, unspecified; I48.91 Unspecified atrial fibrillation; Z79.01 Long term (current) use of anticoagulants; Z82.49 Family history of ischemic heart disease and other diseases of the circulatory system; I10 Essential (primary) hypertension; Z87.891 Personal history of nicotine dependence; R06.02 Shortness of breath
CPT/HCPCS: 92960; 93005

== ENCOUNTER → 2025-09-01 | Outpatient (CLI) | payer SELFPAY ==
--- NOTE | 2025-09-01 09:51 | ECHOL_ITS ---
Reason For Study Reason For Study: ATRIAL FLUTTER Procedure This was a 2D Doppler, Color Flow transthoracic echocardiogram. The study was technically difficult. Contrast injection was performed. Exam performed in department. Left Ventricle Normal LV size. Moderate concentric left ventricular hypertrophy. Left ventricular systolic function is normal. The left ventricular ejection fraction is 55 %. Stage 1 diastolic dysfunction. No regional wall motion abnormalities noted. Right Ventricle Normal RV size. Normal systolic function. Atria Normal left atrium. Normal right atrium. Mitral Valve Normal mitral valve. Tricuspid Valve Normal tricuspid valve. Aortic Valve Trisinus/trileaflet aortic valve. Pulmonic Valve The pulmonic valve is not well visualized. Great Vessels Normal aortic root. The pulmonary artery is normal size. Inferior vena cava collapse with respiration. Pericardium/Pleural No pericardial effusion. Medication 22 gauge I.V. with prn adaptor inserted into right arm. Diluted definity 2.5ml given slow IV push to enhance endocardial definition. MMode/2D Measurements & Calculations LVIDd: 5.1 cm IVSd: 1.5 cm LAV(MOD- bp): 56.7 ml LVIDs: 3.0 cm LVPWd: 1.3 cm RVDd: 4.8 cm FS: 40.3 % LAV(MOD- bp) Indexed: 24.4 ml/m2 LAV(MOD- sp2): 60.7 ml LAV(MOD- sp4): 50.2 ml SV(MOD- sp4): 86.0 ml LVAd ap4: 41.6 cm2 LVAd ap2: 42.3 cm2 LVLd ap4: 9.7 cm LVLd ap2: 10.2 cm SI(MOD- sp4): 37.0 ml/m2 EDV(MOD-sp4): 143.4 ml EDV(MOD-sp2): 144.2 ml EDV(sp4-el): 150.7 ml EDV(sp2-el): 148.5 ml LVAs ap4: 24.0 cm2 LVAs ap2: 26.6 cm2 LVLs ap4: 8.2 cm LVLs ap2: 9.1 cm ESV(MOD-sp4): 57.4 ml ESV(MOD-sp2): 64.8 ml ESV(sp4-el): 59.6 ml ESV(sp2-el): 66.3 ml EF(MOD-sp4): 60.0 % EF(MOD-sp2): 55.1 % EF(sp4-el): 60.4 % SV(MOD-sp2): 79.4 ml SV(sp4-el): 91.1 ml Ao sinus diam: 3.8 cm SI(MOD-sp2): 34.1 ml/m2 Ao ST Junction: 3.0 cm LA dimension(2D): 4.8 cm LA A4 area: 17.4 cm2 RA A4 area: 21.4 cm2 TAPSE: 1.5 cm Time Measurements MV dec time: 0.21 sec Doppler Measurements & Calculations MV E max donte: 50.5 cm/sec Lat Peak E' Donte: 6.5 cm/sec Med Peak E' Donte: 6.1 cm/sec MV A max donte: 70.2 cm/sec E/E' lat: 7.8 E/E' med: 8.3 MV E/A: 0.72 MV dec slope: 242.3 cm/sec2 ECHO/Echo Limited w/Contrast Interpretation Summary Normal LV size. Moderate concentric left ventricular hypertrophy. Left ventricular systolic function is normal. The left ventricular ejection fraction is 55 %. Stage 1 diastolic dysfunction. Contrast injection was performed. Ordering Physician: Jerson Savage Referring Physician: Hernandez Dupree Performed By: Idania Hopkins RDCS
== END | disposition home or self-care (01) ==
PROVIDERS: PCP Family Medicine; Referring Provider Student in an Organized Health Care Education/Training Program; Visit Provider Student in an Organized Health Care Education/Training Program
DX: I50.20 Unspecified systolic (congestive) heart failure (principal)
CPT/HCPCS: 93308; Q9957; A4216; C8924